=== PATIENT | female | born 1985 | race Caucasian/White ===

== ENCOUNTER 2023-04-13 11:46 | Emergency (ER) | payer BC, OTHER ==
--- OUTSIDE RECORDS SUMMARY | 2023-04-13 11:48 | XMS REPORT | Continuity of Care Document ---
Author Name Unknown Address [address] [place] [address] thconnect Address [address] [place] [address] Care Team Providers [facility] Director Name Role Phone [email or web address] Attending Clinician Unavaila ble [email or web address] Admitting Clinician Unavaila ble Encounters Start Date/Time End Date/Time Encounter Type Admission Type Attending Clinicians Care Facility Care Department Encounter ID Source 2023-03-07 00:00:00 2023-03-07 00:00:00 Outpatient [email or web address] [email or web address]_S [facility] [id number] [facility]
[2023-04-13 12:38] LABS: Absolute Lymphocytes (CBC) 1.5 K/uL (0.7-4.9); Hematocrit 33.2 % (36.0-45.0); Lymphocytes % 33.9 % (15.3-44.8); MCV 92.1 fL (80-100); MPV 7.7 fL (7.6-11.3); Platelets 198 thou/uL (152-406)
[2023-04-13 12:53] LABS: Albumin 3.7 g/dL (3.4-5.0); Bilirubin Total 0.2 mg/dL (0.2-1.0); Potassium 3.5 mEq/L (3.5-5.1); Protein, Total 6.9 g/dL (6.4-8.2)
--- NOTE | 2023-04-13 13:46 | ER ---
Nurse's Notes [facility] Name: Tonia Baker Age: 37 yrs Sex: Female : 1985 Arrival Date: 04/13/2023 Time: 11:46 Bed 14 Private MD: Diagnosis: Generalized anxiety disorder Presentation: 04/13 11:56 Chief complaint: EMS states: toned out to workplace for panic attack, hyperventilating eh3 and unable to speak on EMS arrival, pt states she was triggered at work and has hx of panic attacks. Has Xanax 0.25 mg PRN but was unable to take it in time because it was in her car. Ebola Screen: No symptoms or risks identified at this time. Risk Assessment: Do you want to hurt yourself or someone else? Patient reports no desire to harm self or others. Onset of symptoms was April 13, 2023. Care prior to arrival: Medication(s) given: Ativan 2mg IM. 11:56 Method Of Arrival: EMS: [place] [id number] 11:56 Acuity: RANDAL 3 eh3 11:56 Initial Sepsis Screen: Does the patient meet any 2 criteria? No. Patient's initial 3 sepsis screen is negative. Does the patient have a suspected source of infection? No. Patient's initial sepsis screen is negative. 12:30 Coronavirus screen: Vaccine status: Patient reports receiving the 2nd dose of the covid eh3 vaccine. Triage Assessment: 11:56 General: Appears in no apparent distress. Behavior is drowsy. Pain: Denies pain. Neuro: eh3 Level of Consciousness is obtunded. Cardiovascular: Capillary refill < 3 seconds Patient's skin is warm and dry. Rhythm is sinus tachycardia. Respiratory: Airway is patent Respiratory effort is even, unlabored, shallow, Respiratory pattern is regular, symmetrical, hypoventilation. GI: Abdomen is round non-distended. Derm: Skin is pink, warm \T\ dry. Musculoskeletal: Circulation, motion, and sensation intact. 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 - Social history:: Smoking status: unknown. Screenin:56 [facility] ED Fall Risk Assessment (Adult) Score/Fall Risk Level 0 - 2 = Low Risk. eh3 Nutritional screening: No deficits noted. Tuberculosis screening: No symptoms or risk factors identified. 12:30 Abuse screen: Denies threats or abuse. Denies injuries from another. eh3 Assessment: 11:56 Reassessment: No changes from previously documented assessment. See triage assessment. eh3 12:30 Reassessment: Patient appears in no apparent distress at this time. Patient and/or 3 family updated on plan of care and expected duration. Pain level reassessed. Patient is alert, oriented x 3, equal unlabored respirations, skin warm/dry/pink. at bedside. 13:30 Reassessment: Patient appears in no apparent distress at this time. Patient and/or 3 family updated on plan of care and expected duration. Pain level reassessed. Patient is alert, oriented x 3, equal unlabored respirations, skin warm/dry/pink. Vital Signs: 11:56 BP 129 / 81; Pulse 100; Resp 10; Pulse Ox 88% on R/A; eh3 12:30 BP 127 / 82; Pulse 101; Resp 17; Pulse Ox 100% on R/A; eh3 12:37 Pulse Ox 100% ; ec2 13:30 BP 117 / 82; Pulse 99; Resp 15; Pulse Ox 100% ; eh3 ED Course: 11:54 Patient arrived in ED. eh3 11:54 Gerardo Hyman MD is Attending Physician. ec2 11:56 Arm band placed on. eh3 11:56 Patient has correct armband on for positive identification. Bed in low position. Call eh3 light in reach. Side rails up X2. Client placed on continuous cardiac and pulse oximetry monitoring. NIBP monitoring applied. 11:56 Oxygen administration via nasal cannula \T\ 2L/min. eh3 11:58 Triage completed. eh3 12:25 Inserted saline lock: 20 gauge in left antecubital area, using aseptic technique. Blood eh3 collected. 12:30 Pauline Dill, RADHA is Primary Nurse. eh3 12:30 Provided Education on: use of call mack. eh3 12:30 CMP Sent. eh3 12:30 CBC with Diff Sent. eh3 12:30 Oxygen administration via nasal cannula \T\ 1L/min. eh3 13:15 Patient maintains SpO2 saturation greater than 95% on room air. eh3 13:55 No provider procedures requiring assistance completed. IV discontinued, intact, eh3 bleeding controlled, No redness/swelling at site. Pressure dressing applied. Administered Medications: No medications were administered Medication: 13:56 VIS not applicable for this client. eh3 Outcome: 13:45 Discharge ordered by . ec2 14:02 Patient left the ED. eh3 Signatures: Pauline Dill RN RN eh3 Gerardo Hyman MD MD ec2 Corrections: (The following items were deleted from the chart) 13:55 12:00 Inserted saline lock: 20 gauge in left antecubital area, using aseptic technique. eh3 Blood collected. 3 13:56 12:30 Reassessment: Patient appears in no apparent distress at this time. Patient eh3 and/or family updated on plan of care and expected duration. Pain level reassessed. Patient is alert, oriented x 3, equal unlabored respirations, skin warm/dry/pink. eh3
--- NOTE | 2023-04-13 13:46 | EDPHYS ---
Physician Documentation [facility] Name: Tonia Baker Age: 37 yrs Sex: Female : 1985 Arrival Date: 04/13/2023 Time: 11:46 Bed 14 Private MD: ED Physician Gerardo Hyman HPI: 04/13 11:55 This 37 yrs old Female presents to ER via Unassigned with complaints of ec2 Anxiety - Panic Attack. 11:55 Patient arrives today due to concern for possible panic attack. Patient with history of ec2 anxiety, states that she had tremors today that she does not want to talk about and states that she started hyperventilating and having palpitations. EMS reports that they had given her IM benzodiazepine and improvement in symptoms. Patient denies any pains, no vomiting, no diarrhea.. 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 - Social history:: Smoking status: unknown. ROS: 11:55 Constitutional: as per hpi ec2 Exam: 11:55 Constitutional: GEN: NAD Head: atraumatic Eyes: EOMI Ears: External ears are ec2 normal. CV: regular rate LUNGS: no respiratory distress ABD: non-distended SKIN: no evidence of rashes MSK: no evidence of trauma NEURO: moves all extremities equally. Psych: Patient is anxious with some slight hyperventilation. Vital Signs: 11:56 BP 129 / 81; Pulse 100; Resp 10; Pulse Ox 88% on R/A; eh3 12:30 BP 127 / 82; Pulse 101; Resp 17; Pulse Ox 100% on R/A; eh3 12:37 Pulse Ox 100% ; ec2 13:30 BP 117 / 82; Pulse 99; Resp 15; Pulse Ox 100% ; eh3 MDM: 11:54 Patient medically screened. ec2 11:56 ED course: Patient arrives today due to concern for anxiety. Examination remarkable for ec2 well-appearing nontoxic individual who has anxiety evident on examination along with some hyperventilation. Will obtain some lab work to evaluate for underlying process that could be causing her anxiety however I suspect this is a stress-induced reaction. Will also obtain EKG to evaluate for arrhythmia. . 12:36 ED course: EKG independently reviewed and interpreted by me, shows normal sinus rhythm, ec2 rate of 98, no acute ST segment elevations, nonconcerning intervals.. 12:49 Data reviewed: vital signs. ED course: CBC is reassuring. . ec2 12:55 ED course: Metabolic profile shows appropriate electrolytes. Pending urine .. ec2 13:44 ED course: On reassessment patient is awake and alert and answering questions ec2 appropriately, has returned to baseline per the patient and the . Specific trigger was a work associated trigger. Will discharge home, discussed possible testing, patient deferred at this time. Return precautions given.. 12 11:55 Order name: CBC with Diff; Complete Time: 12:49 ec2 04/13 11:55 Order name: CMP; Complete Time: 12:55 ec2 04/13 11:55 Order name: EKG; Complete Time: 11:55 ec2 12 11:55 Order name: EKG - Nurse/Tech; Complete Time: 12:35 ec2 Administered Medications: No medications were administered Disposition Summary: 04/13/23 13:45 Discharge Ordered Notes: Location: Home ec2 Condition: Stable ec2 Diagnosis - Generalized anxiety disorder ec2 Followup: ec2 - With: Private Physician - When: - Reason: Re-evaluation by your physician Discharge Instructions: - Discharge Summary Sheet ec2 - Panic Attack, [id number] ec2 Forms: - Medication Reconciliation Form ec2 - Thank You Letter ec2 - Antibiotic Education ec2 - Prescription Opioid Use ec2 - Patient Portal Instructions ec2 - Leadership Thank You Letter ec2 Signatures: Dispatcher [employer] Pauline Siddiqui RN RN 3 Gerardo Hyman MD MD ec2
[2023-04-13 14:28] VITALS: O2SAT 100
[2023-04-13 14:30] VITALS: BP 117/82
--- NOTE | 2023-04-18 14:03 | EKG ---
Test Date: 2023-04-13 Test Time: 12:33:18 Lodging Manager: LORNA MEASUREMENT RESULTS: Intervals: Rate: 98 MS: 132 QRSD: 86 QT: 358 QTc: 457 [place]: P: 52 MS: 132 QRS: 38 T: 31 INTERPRETIVE STATEMENTS: Normal sinus rhythm Normal ECG No previous ECG available for comparison Electronically Signed On 04-18-23 13:46:00 AUDIT MGR by Jarett York
== END 2023-04-13 14:02 | disposition home or self-care (01) ==
LOC: ER 11:46
DX: F41.1 Generalized anxiety disorder (principal); R06.4 Hyperventilation
CPT/HCPCS: 36415; 80053; 85025; 93005; 99284

== ENCOUNTER 2023-08-21 18:42 | Emergency (ER) | payer BC ==
[2023-08-21] MEDS ORDERED: LEVETIRACETAM 500 MG/5 ML VIAL IV ONE (19:21)
[2023-08-21] MEDS ORDERED: NA CHLORIDE 0.9% 1,000 ML ONE (19:21)
[2023-08-21] MEDS ORDERED: NA CHLORIDE 0.9% 100 ML ONE (19:21)
[2023-08-21] MEDS ORDERED: LORazepam 2 MG/ML VIAL ONE (20:00)
[2023-08-21 20:11] LABS: Absolute Lymphocytes (CBC) 1.8 K/uL (0.7-4.9); Absolute Monocytes 0.7 K/uL (0.1-1.3); Absolute Neutrophil 6.7 K/uL (1.8-8.0); Basophils % 0.4 % (0-1.3); Hematocrit 36.7 % (36.0-45.0); MCH 29.8 pg (27.0-35.0); MCHC 32.6 g/dL (32.0-36.0); MCV 91.4 fL (80-100); MPV 7.8 fL (7.6-11.3); Monocytes % 7.3 % (3.3-12.3); Neutrophils % 72.3 % (41.7-73.7); Platelets 256 thou/uL (152-406); RBC Red Blood Cell Count 4.02 M/uL (3.86-4.86); Red Cell Distribution Width 13.8 % (12.1-15.2)
[2023-08-21 20:16] LABS: PT Prothrombin Time 11.7 SECONDS (9.5-12.5); Protime INR 1.07
[2023-08-21 20:29] LABS: ALT/SGPT 23 U/L (13-56); AST/SGOT 11 U/L (15-37); Albumin 3.6 g/dL (3.4-5.0); Alkaline Phosphatase 72 U/L (45-117); Anion Gap 8.8 mEq/L (5.0-15.0); BUN Blood Urea Nitrogen 7 mg/dL (7-18); Bicarbonate 28 mEq/L (21-32); Bilirubin Total 0.1 mg/dL (0.2-1.0); Globulin 3.6 g/dL (2.3-3.5); Glomerular Filtration Rate 98 ml/min (=/>90); Glucose Level 102 mg/dL (74-106); Magnesium 2.2 mg/dL (1.6-2.4); Potassium 3.8 mEq/L (3.5-5.1); Protein, Total 7.2 g/dL (6.4-8.2); Sodium Level 137 mEq/L (136-145)
[2023-08-21 21:00] LABS: Bilirubin Direct < 0.1 mg/dL (0-0.2); Bilirubin Indirect, Calculated ND mg/dL (0.2-0.8); Troponin High Sensitivity < 3.0 pg/mL (<58.9)
--- NOTE | 2023-08-21 21:21 | RAD REPORT ---
EXAM DESCRIPTION: CT - Head Brain Wo Cont - 08/21/2023 8:52 pm CLINICAL HISTORY: SEIZURE COMPARISON: No comparisons TECHNIQUE: Noncontrast head CT images were obtained without IV contrast. Multiplanar reformats were generated and reviewed. All CT scans are performed using dose optimization technique as appropriate and may include automated exposure control or mA/KV adjustment according to patient size. FINDINGS: No intracranial hemorrhage, mass, or edema. Midline structures are unremarkable. Normal ventricular caliber for age. Cullen-white matter differentiation is preserved, without evidence of acute infarct. No abnormal extra- axial fluid collections. Mastoid air cells and visualized portions of the paranasal sinuses are clear. No acute bony findings. IMPRESSION: No evidence of an acute intracranial process.
[2023-08-21 21:49] LABS: Specific Gravity 1.005 (1.005-1.030); Sqamous Epithelial <5 /HPF (None Seen); Urine Bacteria <20 /HPF (<20); Urine Bilirubin NEGATIVE (Negative); Urine Blood Negative (Negative); Urine Clarity Turbid (Clear); Urine Color Colorless (Yellow); Urine Culture Reflex Order NOT NEEDED; Urine Glucose NEGATIVE (Negative); Urine Ketones NEGATIVE (Negative); Urine Microscopic Reflex YN ORDER UMIC; Urine Nitrite NEGATIVE (Negative); Urine Protein NEGATIVE (Negative); Urine RBC <5 /HPF (None Seen); Urine Urobilinogen Normal (Normal); Urine WBC <5 /HPF (<5)
[2023-08-21 21:50] LABS: Specific Gravity 1.005 (1.005-1.030)
[2023-08-21 21:56] LABS: Barbiturates NEGATIVE (NEGATIVE); Benzodiazepines NEGATIVE (NEGATIVE); Cocaine NEGATIVE (NEGATIVE); METHAMPHETAM NEGATIVE (NEGATIVE); Methadone NEGATIVE (NEGATIVE); Opiates NEGATIVE (NEGATIVE); Phencyclidine NEGATIVE (NEGATIVE); THC Cannibis POSITIVE (NEGATIVE)
--- NOTE | 2023-08-21 23:00 | ER ---
Nurse's Notes [facility] Name: Tonia Baker Age: 37 yrs Sex: Female : 1985 Arrival Date: 08/21/2023 Time: 18:42 Bed 14 Private MD: Diagnosis: Unspecified convulsions;New onset convulsive activity Presentation: 08/20 18:55 Chief complaint: Spouse and/or significant other states: Has been having "seizures" nj1 ever since last week when she was seen at a hospital in [place] for abdominal pain. Never diagnosed with seizures in the past. Pt states she had 3 "grand mal seizures back to back" today, denies incontinence of bowel/urine. 18:55 Coronavirus screen: Vaccine status: Patient reports being unvaccinated. Ebola Screen: nj1 Patient denies travel to an Ebola-affected area in the 21 days before illness onset. Initial Sepsis Screen: Does the patient meet any 2 criteria? HR > 90 bpm. No. Patient's initial sepsis screen is negative. Does the patient have a suspected source of infection? No. Patient's initial sepsis screen is negative. Risk Assessment: Do you want to hurt yourself or someone else? Patient reports no desire to harm self or others. Onset of symptoms was August 2023. 18:55 Method Of Arrival: [facility] 18:55 Acuity: RANDAL 3 nj1 Triage Assessment: 18:55 General: Patient laying in lobby chair as if she was sleeping. Assisted to wheelchair nj1 by .. 19:00 General: Appears in no apparent distress. uncomfortable. Neuro: Level of Consciousness nj1 is awake, obeys commands. RN PRIMARY CARE: 23:33 LMP N/A - control method, Not tl4 Historical: - Allergies: 19:08 No Known Allergies; nj1 - PMHx: 19:08 Anxiety; Fibromyalgia; Chronic fatigue syndrome; nj1 - Immunization history:: Client reports having NOT received the Covid vaccine. - Infectious Disease History:: Denies. - Social history:: Smoking status: Patient denies any tobacco usage or history of. Screenin:49 [facility] ED Fall Risk Assessment (Adult) History of falling in the last 3 months, tl4 including since admission No falls in past 3 months (0 pts) Confusion or Disorientation No (0 pts) Intoxicated or Sedated No (0 pts) Impaired Gait No (0 pts) Mobility Assist Device Used No (0 pt) Altered Elimination No (0 pt) Score/Fall Risk Level 0 - 2 = Low Risk Oriented to surroundings, Maintained a safe environment, Educated pt \\T\\ family on fall prevention, incl call for assistance when getting out of bed, Assessed \\T\\ reinforced patient's understanding of fall precautions, Hourly rounding (assess needs \\T\\ fall precautionary measures) done, Used ambulatory aids as needed (educated on \\T\\ assisted with), Used gait belt as appropriate. Abuse screen: Denies threats or abuse. Denies injuries from another. Nutritional screening: No deficits noted. 23:33 Tuberculosis screening: No symptoms or risk factors identified. tl4 Assessment: 19:30 General: Appears distressed, Behavior is calm, cooperative. Pain: Denies pain. Neuro: tl4 Level of Consciousness is awake, obeys commands, responds intermittently to voice. Oriented to pt states "I can't" when asked to answer orientation questions. Seizure activity noted at this time. Pt closes eyes and they start to flutter. Also noted that patient's extremities will intermittently shake. Pt responds to painful stimuli during episodes. After shaking stops, pt immediately able to respond verbally. Verbal response is quiet, but appropriate. Episodes last from 10 to 30 seconds. Provider Brown aware. Cardiovascular: Capillary refill < 3 seconds Patient's skin is warm and dry. Respiratory: Airway is patent Respiratory effort is even, unlabored, Respiratory pattern is regular, symmetrical, Breath sounds are clear bilaterally. GI: No signs and/or symptoms were reported involving the gastrointestinal system. : No signs and/or symptoms were reported regarding the genitourinary system. EENT: No signs and/or symptoms were reported regarding the EENT system. Derm: No signs and/or symptoms reported regarding the dermatologic system. Musculoskeletal: No signs and/or symptoms reported regarding the musculoskeletal system. 20:37 Reassessment: Patient and/or family updated on plan of care and expected duration. Pain tl4 level reassessed. Patient is alert, oriented x 3, equal unlabored respirations, skin warm/dry/pink. No further episodes of eye fluttering or extremity shaking noted. Pt verbalizes very slowly and quietly. Pt is able to use her cell phone without difficulty. 20:57 Reassessment: Patient is alert, oriented x 3, equal unlabored respirations, skin cm10 warm/dry/pink. Pt noted to be awake at this time. Vital Signs: 18:55 BP 130 / 91; Pulse 108; Resp 16; Temp 97.9(TE); Pulse Ox 98% on R/A; Weight 61.69 kg; nj1 Height 5 ft. 4 in. ; 20:00 BP 122 / 93; Pulse 102; Resp 24; Pulse Ox 98% on R/A; tl4 20:30 BP 123 / 83; Pulse 99; Resp 18; Pulse Ox 100% on R/A; tl4 21:00 BP 112 / 78; Pulse 102; Resp 24; Pulse Ox 100% ; Pain 0/10; tl4 21:30 BP 124 / 83; Pulse 104; Resp 16; Pulse Ox 99% on R/A; tl4 23:15 BP 119 / 75; Pulse 89; Resp 16; Temp 98.6(O); Pulse Ox 99% ; Pain 0/10; tl4 18:55 Body Mass Index 23.34 (61.69 kg, 162.56 cm) nj1 21:00 Pain Scale: Adult tl4 23:15 Pain Scale: Adult tl4 Constanza Coma Score: 19:00 Eye Response: spontaneous(4). Motor Response: obeys commands(6). Verbal Response: nj1 oriented(5). Total: 15. ED Course: 18:44 Patient arrived in ED. im 18:44 Nicolasa Edmond [facility] sb4 18:44 Gerardo Hyman MD is Attending Physician. sb4 19:08 Triage completed. nj1 19:09 Arm band placed on. nj1 19:35 Seizure precautions initiated. tl4 20:07 Attending Physician role handed off by Gerardo Hyman MD sb4 20:07 Juan Estes MD is Attending Physician. sb4 20:12 Basic Metabolic Panel Sent. tl4 20:12 CBC with Diff Sent. tl4 20:12 Hepatic Function Sent. tl4 20:12 Magnesium Sent. tl4 20:12 Protime (+inr) Sent. tl4 20:12 Ptt, Activated Sent. tl4 20:12 Troponin High Sensitivity Sent. tl4 20:54 CT Head Brain wo Cont In Process Unspecified. EDMS 20:[address]. cm10 21:26 Patient has correct armband on for positive identification. Placed in gown. Bed in low tl4 position. Call light in reach. Side rails up X 1. Adult w/ patient. Provided Education on: ED process. Client placed on continuous cardiac and pulse oximetry monitoring. NIBP monitoring applied. dielectric tester on. Door closed. Noise minimized. Lights dimmed. Moved to private room. Warm blanket given. 21:26 Initial lab(s) drawn, by me, sent to lab. EKG done, by ED staff, reviewed by Juan Estes MD. 21:52 Warm blanket given. tl4 22:58 Xu Villagomez MD is Referral Physician. sp4 23:10 No provider procedures requiring assistance completed. IV discontinued, intact, tl4 bleeding controlled, No redness/swelling at site. Pressure dressing applied. Administered Medications: 20:11 Drug: NS 0.9% IV 1000 ml IV at 1 bolus Per protocol; 1000 mL bolus Route: IV; Rate: 1 tl4 bolus; Site: left antecubital; Delivery: Primary tubing; 23:19 Follow up: Response: No adverse reaction; IV Status: Completed infusion; IV Intake: tl4 1000ml 20:11 Drug: Keppra IV 1000 mg IV at calculated rate once Route: IV; Rate: calculated rate; tl4 Site: left antecubital; 23:19 Follow up: Response: No adverse reaction; IV Status: Completed infusion; IV Intake: tl4 100ml 20:12 Drug: Ativan IVP 1 mg IVP once Route: IVP; Site: left antecubital; tl4 21:24 Follow up: Response: No adverse reaction; Marked relief of symptoms tl4 23:20 Not Given (no further seizure like activityy): ativan1 mg IVP once tl4 23:20 Drug: Keppra PO 750 mg PO once Route: PO; tl4 23:31 Follow up: Response: No adverse reaction; Medication administered at discharge. tl4 Medication: 22:01 VIS not applicable for this client. tl4 Intake: 23:19 IV: 100ml; Total: 100ml. tl4 23:19 IV: 1000ml; Total: 1100ml. tl4 Outcome: 22:59 Discharge ordered by . sp4 23:12 Discharged to home ambulatory, with family, tl4 23:12 Condition: stable 23:12 Discharge instructions given to patient, family, Instructed on discharge instructions, follow up and referral plans. medication usage, Demonstrated understanding of instructions, follow-up care, medications, Prescriptions given X 2, 23:33 Patient left the ED. tl4 Signatures: Dispatcher [employer] EDNicolasa Ramirez, AMIE PAShailesh sb4 Juan Estes MD MD sp4 Chyna Linares RN RN nj1 Amy Page Clarissa, RN RN cm10 Nick Garber RN RN tl4
--- NOTE | 2023-08-21 23:00 | EDPHYS ---
Physician Documentation [facility] Name: Tonia Baker Age: 37 yrs Sex: Female : 1985 Arrival Date: 08/21/2023 Time: 18:42 Bed 14 Private MD: ED Physician Juan Estes HPI: 08/20 19:13 This 37 yrs old Female presents to ER via Ambulatory with complaints of Probable sb4 Seizure. 19:13 states that patient has had several seizures over the past week. He states that sb4 first they were just localized to her eye rolling back in her head and blinking rapidly, then involved her left arm shaking, and have developed into full grand mal seizures. 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 - Infectious Disease History:: Denies. - Social history:: Smoking status: Patient denies any tobacco usage or history of. ROS: 19:28 Constitutional: Negative for fever, chills, and weight loss, sb4 19:28 Neuro: Positive for headache, seizure activity, 19:28 All other systems are negative, Exam: 19:28 Head/Face: Normocephalic, atraumatic. Eyes: Extra-ocular motions intact. Periorbital sb4 areas with no swelling, redness, or edema. ENT: Mucous membranes moist. Respiratory: Lungs have equal breath sounds bilaterally, clear to auscultation and percussion. No rales, rhonchi or wheezes noted. No increased work of breathing, no retractions or nasal flaring. Abdomen/GI: Soft, non-tender, no distension. Skin: Warm, dry with normal turgor. Normal color with no rashes, no lesions, and no evidence of cellulitis. MS/ Extremity: Pulses equal, no cyanosis. Neurovascular intact. Full, normal range of motion. 19:28 Constitutional: The patient appears alert, awake, sleepy 19:28 Cardiovascular: Rate: tachycardic, Rhythm: regular, 19:28 Neuro: seizure activity, focal in nature is displayed by patient, left arm shaking, eyes blinking, unresponsive to verbal or painful stimuli- resolved spontaneously, 22:46 ECG was reviewed by the Attending Physician. EKG 2030 sinus tachycardia at the rate sp4 of 103 Vital Signs: 18:55 BP 130 / 91; Pulse 108; Resp 16; Temp 97.9(TE); Pulse Ox 98% on R/A; Weight 61.69 kg; nj1 Height 5 ft. 4 in. ; 20:00 BP 122 / 93; Pulse 102; Resp 24; Pulse Ox 98% on R/A; tl4 20:30 BP 123 / 83; Pulse 99; Resp 18; Pulse Ox 100% on R/A; tl4 21:00 BP 112 / 78; Pulse 102; Resp 24; Pulse Ox 100% ; Pain 0/10; tl4 21:30 BP 124 / 83; Pulse 104; Resp 16; Pulse Ox 99% on R/A; tl4 23:15 BP 119 / 75; Pulse 89; Resp 16; Temp 98.6(O); Pulse Ox 99% ; Pain 0/10; tl4 18:55 Body Mass Index 23.34 (61.69 kg, 162.56 cm) nj1 21:00 Pain Scale: Adult tl4 23:15 Pain Scale: Adult tl4 [place] Coma Score: 19:00 Eye Response: spontaneous(4). Motor Response: obeys commands(6). Verbal Response: nj1 oriented(5). Total: 15. MDM: 18:56 Patient medically screened. sb4 20:07 Transition of care: After a detail discussion of the patient's case, care is sb4 transferred to Juan Estes MD. 08/21 00:12 Differential diagnosis: drug overdose, cardiac arrhythmia, seizure, TIA. Data reviewed: sp4 vital signs, nurses notes, old medical records, lab test result(s), radiologic studies, CT scan. Consideration of Admission/Observation Escalation of care including admission/observation considered. ED course: Workup is unremarkable today. Patient is feeling better. Patient evaluated will have seizure disorder new onset. Will provide prescription for Keppra and refer to Dr. Villagomez for office evaluation. . 08/20 19:10 Order name: Basic Metabolic Panel; Complete Time: 21:07 sb4 08/20 19:10 Order name: CBC with Diff; Complete Time: 20:14 sb4 08/20 19:10 Order name: Hepatic Function; Complete Time: 21:07 sb4 08/20 19:10 Order name: Magnesium; Complete Time: 21:07 sb4 08/20 19:10 Order name: Test, Urine; Complete Time: 22:16 sb4 08/20 19:10 Order name: Protime (+inr); Complete Time: 21:07 sb4 08/20 19:10 Order name: Ptt, Activated; Complete Time: 21:07 sb4 08/20 19:10 Order name: Troponin High Sensitivity; Complete Time: 21:07 sb4 08/20 19:10 Order name: UDS; Complete Time: 22:16 sb4 08/20 19:10 Order name: Urinalysis w/ reflexes; Complete Time: 22:16 sb4 08/20 19:10 Order name: CT Head Brain wo Cont; Complete Time: 22:16 sb4 08/20 19:10 Order name: Cardiac monitoring; Complete Time: 20:11 sb4 08/20 19:10 Order name: EKG - Nurse/Tech; Complete Time: 20:36 4 08/20 19:10 Order name: IV Saline Lock; Complete Time: 20:11 sb4 08/20 19:10 Order name: Labs collected and sent; Complete Time: 20:11 sb4 08/20 19:10 Order name: NPO; Complete Time: 20:11 sb4 08/20 19:10 Order name: O2 Per Protocol; Complete Time: 20:12 sb4 08/20 19:10 Order name: O2 Sat Monitoring; Complete Time: 20:12 sb4 EC/15 22:46 Rate is 103 beats/min. Rhythm is regular, Sinus tachycardia. QRS Point [place] is Normal. DE sp4 interval is normal. QRS interval is normal. QT interval is normal. No Q waves. T waves are Normal. No ST changes noted. Clinical impression: Normal ECG. Interpreted by me. Reviewed by me. Administered Medications: 20:11 Drug: NS 0.9% IV 1000 ml IV at 1 bolus Per protocol; 1000 mL bolus Route: IV; Rate: 1 tl4 bolus; Site: left antecubital; Delivery: Primary tubing; 23:19 Follow up: Response: No adverse reaction; IV Status: Completed infusion; IV Intake: tl4 1000ml 20:11 Drug: Keppra IV 1000 mg IV at calculated rate once Route: IV; Rate: calculated rate; tl4 Site: left antecubital; 23:19 Follow up: Response: No adverse reaction; IV Status: Completed infusion; IV Intake: tl4 100ml 20:12 Drug: Ativan IVP 1 mg IVP once Route: IVP; Site: left antecubital; tl4 21:24 Follow up: Response: No adverse reaction; Marked relief of symptoms tl4 23:20 Not Given (no further seizure like activityy): ativan1 mg IVP once tl4 23:20 Drug: Keppra PO 750 mg PO once Route: PO; tl4 23:31 Follow up: Response: No adverse reaction; Medication administered at discharge. tl4 Disposition: 22:57 Co-signature as Attending Physician, Jaun Estes MD I agree with the assessment sp4 and plan of care. I reviewed the patient's care provided by Advanced Practice Provider \T\ agree w/ the diagnosis \T\ care plan. I personally saw the pt \T\ performed a substantive portion of the visit, incldng all aspects of the (History/Exam/Medical Decision Making). Disposition Summary: 08/21/23 22:59 Discharge Ordered Problem: new sp4 Symptoms: have improved sp4 Condition: Stable sp4 Diagnosis - Unspecified convulsions sp4 - New onset convulsive activity sp4 Followup: sp4 - With: Xu Villagomez MD - When: 7 - 10 days - Reason: Recheck today's complaints Discharge Instructions: - Discharge Summary Sheet sp4 - Seizure, Adult, [id number] sp4 Forms: - Patient Portal Instructions sp4 Prescriptions: - Ativan 2 mg Oral tablet - take 1 tablet ORAL route every 8 hours As needed PRN seizure or convulsive sp4 activity; 20 tablet; Refills: 0, Product Selection Permitted - Keppra 750 mg Oral tablet - take 1 tablet ORAL route every 12 hours; 60 tablet; Refills: 0, Product sp4 Selection Permitted Signatures: Dispatcher [employer] Nicolasa Huddleston PA-C PA-C sb4 Juan Estes MD MD sp4 Chyna Linares RN RN nj1 Nick Garber RN RN tl4 Corrections: (The following items were deleted from the chart) 19:11 19:10 BASIC METABOLIC PANEL+C.LAB.BRZ ordered. EDMS EDMS 19:11 19:10 CBC+H.LAB.BRZ ordered. EDMS EDMS 19:11 19:10 HEPATIC FUNCTION+C.LAB.BRZ ordered. EDMS EDMS 19: 19:10 MAGNESIUM+C.LAB.BRZ ordered. EDMS EDMS 19:11 19:10 Test, Urine+UC.LAB.BRZ ordered. EDMS EDMS 19:11 19:10 PROTIME (+INR)+COAG.LAB.BRZ ordered. EDMS EDMS 19: 19:10 PTT, ACTIVATED+COAG.LAB.BRZ ordered. EDMS EDMS 19: 19:10 Troponin High Sensitivity+C.LAB.BRZ ordered. EDMS EDMS 19:11 19:10 URINE DRUG SCREEN+UC.LAB.BRZ ordered. EDMS EDMS 19: 19:10 Urinalysis+U.LAB.BRZ ordered. EDMS EDMS 19:11 19:11 Head Brain Wo Cont+CT.RAD.BRZ ordered. EDMS EDMS
[2023-08-21] MEDS ORDERED: levETIRAcetam 500 MG TAB ONE (23:14)
[2023-08-22 06:03] VITALS: BP 124/83; TEMP 97.9; O2SAT 99
== END 2023-08-21 23:33 | disposition home or self-care (01) ==
LOC: ER 18:42
DX: G40.009 Localization-related (focal) (partial) idiopathic epilepsy and epileptic syndromes with seizures of localized onset, not intractable, without status epilepticus (principal)
CPT/HCPCS: 96365; 93005; 85025; 81001; 80048; 36415; 83735; 81025; 85610; 80076; 85730; 84484; 80307; 70450; 96375; 99285; 96366; J1953; J7030

== ENCOUNTER 2023-08-22 18:44 | Emergency (ER) | payer BC ==
[2023-08-22] MEDS ORDERED: LORazepam 2 MG/ML VIAL ONE (19:10)
[2023-08-22] MEDS ORDERED: NA CHLORIDE 0.9% 1,000 ML ONE (19:18)
[2023-08-22] MEDS ORDERED: LEVETIRACETAM 500 MG/5 ML VIAL IV ONE (19:18)
[2023-08-22 19:25] LABS: Absolute Lymphocytes (CBC) 2.7 K/uL (0.7-4.9); Absolute Monocytes 0.6 K/uL (0.1-1.3); Absolute Neutrophil 3.6 K/uL (1.8-8.0); Basophils % 0.6 % (0-1.3); Eosinophils % 0.1 % (0-4.4); Hemoglobin 11.9 g/dL (12.0-15.0); Lymphocytes % 38.8 % (15.3-44.8); MCH 30.2 pg (27.0-35.0); MCHC 33.1 g/dL (32.0-36.0); MCV 91.3 fL (80-100); MPV 7.6 fL (7.6-11.3); Monocytes % 9.1 % (3.3-12.3); Neutrophils % 51.4 % (41.7-73.7); Nucleated Red Blood Cells % 0.1 % (0-0); Platelets 273 thou/uL (152-406); RBC Red Blood Cell Count 3.94 M/uL (3.86-4.86); Red Cell Distribution Width 13.7 % (12.1-15.2)
[2023-08-22 19:45] LABS: Albumin 3.7 g/dL (3.4-5.0); Albumin/Globulin Ratio 1.1 (1.1-1.8); Bilirubin Total 0.1 mg/dL (0.2-1.0); Globulin 3.5 g/dL (2.3-3.5); Protein, Total 7.2 g/dL (6.4-8.2)
--- NOTE | 2023-08-22 20:51 | ER ---
Nurse's Notes [facility] Name: Tonia Baker Age: 37 yrs Sex: Female : 1985 Arrival Date: 08/22/2023 Time: 18:44 Bed 15 Private MD: Diagnosis: Other seizures Presentation: 08/21 18:57 Chief complaint: Spouse and/or significant other states: "we were up here yesterday as6 because she was having seizures and she has been having them all day today" pt was shaking at time of triage but able to assist this nurse with getting her in a wheelchair. Coronavirus screen: At this time, the client does not indicate any symptoms associated with coronavirus-19. Ebola Screen: No symptoms or risks identified at this time. Initial Sepsis Screen: Does the patient meet any 2 criteria? No. Patient's initial sepsis screen is negative. Does the patient have a suspected source of infection? No. Patient's initial sepsis screen is negative. Risk Assessment: Do you want to hurt yourself or someone else? Patient reports no desire to harm self or others. Onset of symptoms was August 21, 2023. 18:57 Acuity: RANDAL 3 as6 18:57 Method Of Arrival: Wheelchair as6 Triage Assessment: 19:20 Neuro: Level of Consciousness is obeys commands, Seizure activity noted at this time. rv Type of seizure: grand mal seizure. Patient is post-ictal at this time. Cardiovascular: Rhythm is sinus tachycardia. Respiratory: Airway is patent Respiratory effort is even, unlabored, Respiratory pattern is regular, Breath sounds are clear bilaterally. 19:32 General: Appears Behavior is drowsy. Pain: Denies pain. 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 - Infectious Disease History:: Denies. - Social history:: Smoking status: Patient denies any tobacco usage or history of. Screenin:23 [facility] ED Fall Risk Assessment (Adult) History of falling in the last 3 months, rv including since admission Yes- fall prone (multiple falls) (3 pts) Confusion or Disorientation Yes (5 pts) Score/Fall Risk Level 3 or more points = High Risk Oriented to surroundings, Maintained a safe environment, Educated pt \\T\\ family on fall prevention, incl call for assistance when getting out of bed, Assessed \\T\\ reinforced patient's understanding of fall precautions. Abuse screen: Denies threats or abuse. Denies injuries from another. Nutritional screening: No deficits noted. Tuberculosis screening: No symptoms or risk factors identified. Assessment: 19:34 Neuro: Level of Consciousness is obeys commands. rv 21:35 General: Appears comfortable, Behavior is calm, cooperative. Pain: Denies pain. Neuro: rv Level of Consciousness is awake, alert, obeys commands, Oriented to person, place, time, situation. Cardiovascular: Capillary refill < 3 seconds Rhythm is sinus rhythm. Respiratory: Airway is patent Respiratory effort is even, unlabored. Vital Signs: 18:57 BP 109 / 76; Pulse 118; Resp 18 S; Temp 97.1(TE); Pulse Ox 99% on R/A; Weight 61.23 kg as6 (R); Height 5 ft. 4 in. (R); 19:23 BP 106 / 77; Pulse 116; Resp 16; Pulse Ox 99% on 2 lpm NC; rv 20:41 BP 104 / 67; Pulse 86; Resp 17; Pulse Ox 100% on 2 lpm NC; rv 21:35 BP 97 / 60; Pulse 83; Resp 18; Pulse Ox 98% 2 lpm ; rv 23:04 Pulse 84; Resp 18; Temp 98; Pulse Ox 100% ; rv 18:57 Body Mass Index 23.17 (61.23 kg, 162.56 cm) as6 Ovando Coma Score: 19:32 Eye Response: to voice(3). Motor Response: obeys commands(6). Verbal Response: rv confused(4). Total: 13. ED Course: 18:45 Patient arrived in ED. im 18:57 Arm band placed on. as6 19:00 Susana Rinaldi FNP-C [facility]. kb 19:00 Gerardo Hyman MD is Attending Physician. kb 19:00 Triage completed. as6 19:12 Reese Streeter, RADHA is Primary Nurse. rv 19:23 Patient has correct armband on for positive identification. Client placed on continuous rv cardiac and pulse oximetry monitoring. NIBP monitoring applied. property assessment monitor on. 19:23 Placed in gown. Bed in low position. Call light in reach. Side rails up X2. Seizure rv precautions initiated. 19:23 Initial lab(s) drawn, by me, sent to lab. Inserted saline lock: 20 gauge in left rv antecubital area, using aseptic technique. Blood collected. 19:25 Seizure precautions initiated. oe 20:26 Initiated transfer to [facility], spoke with Nanette. wm 20:41 No provider procedures requiring assistance completed. rv 22:04 Pt accepted for transfer to [facility] Rm:[address] Perkins, Than \\T\\ 2147 per Nanette Conte. wm 22:04 EMS will transport with an ETA \\T\\ 2315. wm 23:03 Patient transferred, IV remains in place. rv Administered Medications: 19:15 Drug: Ativan IVP 2 mg IVP once Route: IVP; Site: left antecubital; rv 21:33 Follow up: Response: No adverse reaction; Marked relief of symptoms; RASS: Drowsy (-1) rv 19:23 Drug: Keppra IV 1000 mg IV at calculated rate once Route: IV; Rate: calculated rate; rv Site: left antecubital; 21:32 Follow up: Response: No adverse reaction; IV Status: Completed infusion rv 19:23 Drug: NS 0.9% IV 1000 ml IV at 1000 ml once Route: IV; Rate: 1000 ml; Site: left rv antecubital; 21:32 Follow up: IV Status: Completed infusion; IV Intake: 1000ml rv Medication: 19:23 VIS not applicable for this client. rv Intake: 21:32 IV: 1000ml; Total: 1000ml. rv Outcome: 20:51 ER care complete, transfer ordered by MD. stephen 23:03 Transferred by ground EMS to [facility], Transfer form completed. rv X-rays sent w/ patient. Note: report given to [facility] 23:03 Condition: good 23:03 Instructed on the need for transfer, 23:36 Patient left the ED. rv Signatures: Susana Rinaldi, GAS LINE SERVICER-C GAS LINE SERVICER-Ckb Micah Garcia oe Reese Streeter, RN RN rv Amanda Treviño Ashby, RN RN as6 Amy Page im
--- NOTE | 2023-08-22 20:51 | EDPHYS ---
Physician Documentation [facility] Name: Tonia Baker Age: 37 yrs Sex: Female : 1985 Arrival Date: 08/22/2023 Time: 18:44 Bed 15 Private MD: ED Physician Gerardo Hyman HPI: 08/21 20:51 This 37 yrs old Female presents to ER via Wheelchair with complaints of Seizure. kb 20:51 Pt is a 37 year old female who presents for recurrent seizures. states pt kb started having seizures last week where her eyes would roll back, then they progressed to full body convulsions. Pt was seen here yesterday and put on Keppra. Came back today because pt has had about 7 seizures throughout the day. . 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 - Infectious Disease History:: Denies. - Social history:: Smoking status: Patient denies any tobacco usage or history of. ROS: 19:13 Constitutional: As per HPI kb Exam: 19:13 Constitutional: This is a well developed, well nourished patient who is awake, alert, kb and in no acute distress. Head/Face: Normocephalic, atraumatic. Eyes: Pupils equal round and reactive to light, extra-ocular motions intact. Lids and lashes normal. Conjunctiva and sclera are non-icteric and not injected. Cornea within normal limits. Periorbital areas with no swelling, redness, or edema. ENT: Moist Mucous membranes Respiratory: Respirations even and unlabored. No increased work of breathing. Talking in full sentences Abdomen/GI: Soft, non-tender. No distention Skin: Warm, dry with normal turgor. Normal color. MS/ Extremity: Pulses equal, no cyanosis. Neurovascular intact. Full, normal range of motion. Neuro: Awake and alert, GCS 15, oriented to person, place, time, and situation. Moves all extremities. Able to transfer from wheelchair to stretcher with assist 19:13 Cardiovascular: Rate: tachycardic, Vital Signs: 18:57 BP 109 / 76; Pulse 118; Resp 18 S; Temp 97.1(TE); Pulse Ox 99% on R/A; Weight 61.23 kg as6 (R); Height 5 ft. 4 in. (R); 19:23 BP 106 / 77; Pulse 116; Resp 16; Pulse Ox 99% on 2 lpm NC; rv 20:41 BP 104 / 67; Pulse 86; Resp 17; Pulse Ox 100% on 2 lpm NC; rv 21:35 BP 97 / 60; Pulse 83; Resp 18; Pulse Ox 98% 2 lpm ; rv 23:04 Pulse 84; Resp 18; Temp 98; Pulse Ox 100% ; rv 18:57 Body Mass Index 23.17 (61.23 kg, 162.56 cm) as6 Constanza Coma Score: 19:32 Eye Response: to voice(3). Motor Response: obeys commands(6). Verbal Response: rv confused(4). Total: 13. MDM: 19:02 Patient medically screened. kb 19:13 Data reviewed: vital signs, nurses notes. kb 19:13 Differential diagnosis: cardiac arrhythmia, seizure, electrolyte abnormality. Management of patient was discussed with the following: Electronic Engineering Technician: Dr Villagomez recommends transfer for EEG monitoring. 20:08 Consideration of Admission/Observation Escalation of care including admission/observation considered. pt will be transferred for EEG monitoring. Historians other than the Patient: Spouse/Significant Other: . Counseling: I had a detailed discussion with the patient and/or guardian regarding the historical points, exam findings, and any diagnostic results supporting the discharge/admit diagnosis, lab results, the need to transfer to another facility, for higher level of care. 21:33 Management of patient was discussed with the following: Dr Baez, neurologist at [facility], accepts pt for consult. Would like pt admitted to hospitalist. Awaiting call back . 22:16 Management of patient was discussed with the following: Dr Khan, hospitalist at [facility], accepts pt for transfer. 08/21 19:09 Order name: CBC with Diff; Complete Time: 19:38 kb 08/21 19:09 Order name: CMP; Complete Time: 19:50 kb 08/21 19:07 Order name: IV Start; Complete Time: 19:36 kb Administered Medications: 19:15 Drug: Ativan IVP 2 mg IVP once Route: IVP; Site: left antecubital; rv 21:33 Follow up: Response: No adverse reaction; Marked relief of symptoms; RASS: Drowsy (-1) rv 19:23 Drug: Keppra IV 1000 mg IV at calculated rate once Route: IV; Rate: calculated rate; rv Site: left antecubital; 21:32 Follow up: Response: No adverse reaction; IV Status: Completed infusion rv 19:23 Drug: NS 0.9% IV 1000 ml IV at 1000 ml once Route: IV; Rate: 1000 ml; Site: left rv antecubital; 21:32 Follow up: IV Status: Completed infusion; IV Intake: 1000ml rv Disposition Summary: 08/22/23 20:51 Transfer Ordered Notes: Transfer Location: [facility] kb Reason: Higher level of care kb Condition: Stable kb Problem: new kb Symptoms: are unchanged kb Accepting Physician: Dr Khan(08/22/23 23:36) rv Diagnosis - Other seizures kb Forms: - Medication Reconciliation Form kb - SBAR form kb Addendum: 08/25/2023 01:03 I was immediately available for consultation during this patient's visit. I did not e c2 personally see the patient or discuss the patient with the ROBERT. . Signatures: Dispatcher [employer] Susana Pfeiffer, LABORER CHEESEMAKING-C LABORER CHEESEMAKING-CkReese Wolff RN RN rv Slawson, Ashby, RN RN as6 Gerardo Hyman MD MD ec2 Corrections: (The following items were deleted from the chart) 08/21 20:52 19:13 Constitutional: This is a well developed, well nourished patient who is awake, kb alert, and in no acute distress. Head/Face: Normocephalic, atraumatic. Eyes: Pupils equal round and reactive to light, extra-ocular motions intact. Lids and lashes normal. Conjunctiva and sclera are non-icteric and not injected. Cornea within normal limits. Periorbital areas with no swelling, redness, or edema. ENT: Moist Mucous membranes Respiratory: Respirations even and unlabored. No increased work of breathing. Talking in full sentences Abdomen/GI: Soft, non-tender. No distention Skin: Warm, dry with normal turgor. Normal color. MS/ Extremity: Pulses equal, no cyanosis. Neurovascular intact. Full, normal range of motion. Neuro: Awake and alert, GCS 15, oriented to person, place, time, and situation. Moves all extremities. Normal gait. kb 22:16 20:51 Dr kb kb 23:36 22:16 Dr Than kb rv
[2023-08-23 09:06] VITALS: BP 97/60; TEMP 98; O2SAT 100
== END 2023-08-22 23:36 | disposition short-term general hospital (02) ==
LOC: ER 18:44
DX: G40.89 Other seizures (principal)
CPT/HCPCS: 96365; 85025; 36415; 80053; 96375; 99285; 96366; J1953; J7030

== ENCOUNTER 2024-06-06 13:58 | Emergency (ER) | payer BC ==
[2024-06-06] MEDS ORDERED: NA CHLORIDE 0.9% 1,000 ML ONE (14:25)
[2024-06-06] MEDS ORDERED: KETOROLAC 30 MG/ML INJ ONE (14:25)
[2024-06-06] MEDS ORDERED: LORazepam 2 MG/ML VIAL ONE (14:25)
[2024-06-06 14:29] LABS: Absolute Basophils 0.1 K/uL (0-0.5); Absolute Lymphocytes (CBC) 1.4 K/uL (0.7-4.9); Absolute Monocytes 0.6 K/uL (0.1-1.3); Basophils % 0.6 % (0-1.3); Eosinophils % 0.1 % (0-4.4); Hematocrit 33.8 % (36.0-45.0); Hemoglobin 11.4 g/dL (12.0-15.0); MCH 30.2 pg (27.0-35.0); MCHC 33.8 g/dL (32.0-36.0); MCV 89.4 fL (80-100); Monocytes % 4.8 % (3.3-12.3); Neutrophils % 82.5 % (41.7-73.7); Nucleated Red Blood Cells % 0.1 % (0-0); Platelets 338 thou/uL (152-406); RBC Red Blood Cell Count 3.79 M/uL (3.86-4.86); Red Cell Distribution Width 13.8 % (12.1-15.2)
[2024-06-06 14:46] LABS: ALT/SGPT 32 U/L (13-56); AST/SGOT 30 U/L (15-37); Albumin 3.5 g/dL (3.4-5.0); Albumin/Globulin Ratio 0.9 (1.1-1.8); Alkaline Phosphatase 81 U/L (45-117); Anion Gap 12.1 mEq/L (5.0-15.0); BUN Blood Urea Nitrogen 7 mg/dL (7-18); Bicarbonate 25 mEq/L (21-32); Bilirubin Total 0.3 mg/dL (0.2-1.0); Globulin 3.8 g/dL (2.3-3.5); Glomerular Filtration Rate 102 ml/min (=/>90); Glucose Level 93 mg/dL (74-106); Magnesium 2.3 mg/dL (1.6-2.4); Potassium 4.1 mEq/L (3.5-5.1); Protein, Total 7.3 g/dL (6.4-8.2); Sodium Level 137 mEq/L (136-145)
--- NOTE | 2024-06-06 14:47 | RAD REPORT ---
Procedure: Chest Single View HISTORY: Cough COMPARISON: 2018 FINDINGS: The lungs appear clear of acute infiltrate. No significant pleural effusion noted. The heart is normal size. IMPRESSION: No acute abnormality is displayed.
[2024-06-06 14:50] LABS: Bilirubin Direct < 0.2 mg/dL (0-0.2); Bilirubin Indirect, Calculated 0.1 mg/dL (0.2-0.8); Troponin High Sensitivity < 3.0 pg/mL (<58.9)
--- NOTE | 2024-06-06 15:39 | ER ---
Nurse's Notes [facility] Name: Tonia Baker Age: 38 yrs Sex: Female : 1985 Arrival Date: 06/06/2024 Time: 13:58 Bed 6 Private MD: Diagnosis: Other seizures;Acute upper respiratory infection, unspecified Presentation: 06/06 14:06 Chief complaint: EMS states: pt was at urgent care for cough and body aches and was aa5 reported pt had 3 seizures at urgent care. 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 14:06 Coronavirus screen: cough unrelated to allergies, muscle pain. Ebola Screen: Patient aa5 denies travel to an Ebola-affected area in the 21 days before illness onset. Initial Sepsis Screen: Does the patient meet any 2 criteria? HR > 90 bpm. Does the patient have a suspected source of infection? No. Patient's initial sepsis screen is negative. Risk Assessment: Do you want to hurt yourself or someone else? Patient reports no desire to harm self or others. Onset of symptoms was June 06, 2024. 14:06 Method Of Arrival: EMS: [facility] aa5 14:06 Acuity: RANDAL 3 aa5 14:06 Care prior to arrival: IV initiated. 20 GA, in the left antecubital area, Glucose aa5 check: 94. Historical: - Allergies: 14:07 No Known Allergies; aa5 - Home Meds: 14:07 Xanax Oral [Active]; Zoloft Oral [Active]; gabapentin oral [Active]; aa5 - PMHx: 14:07 Anxiety; Chronic fatigue syndrome; Fibromyalgia; Depressive disorder; aa5 - Immunization history:: Adult Immunizations unknown. - Infectious Disease History:: Denies. - Social history:: Smoking status: Patient denies any tobacco usage or history of. - Family history:: not pertinent. Screenin:[address] [facility] ED Fall Risk Assessment (Adult) History of falling in the last 3 months, jb4 including since admission No falls in past 3 months (0 pts) Confusion or Disorientation No (0 pts) Intoxicated or Sedated No (0 pts) Impaired Gait No (0 pts) Mobility Assist Device Used No (0 pt) Altered Elimination No (0 pt) Score/Fall Risk Level 0 - 2 = Low Risk Oriented to surroundings, Maintained a safe environment, Educated pt \T\ family on fall prevention, incl call for assistance when getting out of bed, Assessed \T\ reinforced patient's understanding of fall precautions, Hourly rounding (assess needs \T\ fall precautionary measures) done. Abuse screen: Denies threats or abuse. Denies injuries from another. Nutritional screening: No deficits noted. Tuberculosis screening: No symptoms or risk factors identified. Assessment: 14:06 General: Appears uncomfortable, Behavior is calm, cooperative. Pain: Complains of pain aa5 in back Quality of pain is described as aching, Aggravated by cough. Neuro: Level of Consciousness is awake, alert, obeys commands, Oriented to person, place, time, situation. Cardiovascular: Heart tones S1 S2 present Rhythm is sinus tachycardia. Respiratory: Reports cough that is productive, persistent Airway is patent Respiratory effort is even, unlabored, Respiratory pattern is regular, symmetrical. GI: No signs and/or symptoms were reported involving the gastrointestinal system. Patient currently denies diarrhea, intolerance of fluids, intolerance of food, nausea, vomiting. : No signs and/or symptoms were reported regarding the genitourinary system. EENT: No signs and/or symptoms were reported regarding the EENT system. Derm: Skin is pink, warm \T\ dry. Musculoskeletal: Range of motion: intact in all extremities. Vital Signs: 14:06 BP 129 / 87; Pulse 132; Resp 19 S; Temp 99.2(O); Pulse Ox 100% on R/A; aa5 14:06 Weight 52.62 kg (R); Height 5 ft. 4 in. (R); aa5 14:28 Pulse 117; Resp 16 S; Pulse Ox 97% on R/A; aa5 15:48 BP 108 / 73; Pulse 112; Resp 19; Pulse Ox 99% on R/A; ko1 14:06 Body Mass Index 19.91 (52.62 kg, 162.56 cm) aa5 [place] Coma Score: 14:07 Eye Response: spontaneous(4). Motor Response: obeys commands(6). Verbal Response: aa5 oriented(5). Total: 15. ED Course: 14:06 Patient arrived in ED. jb4 14:06 Arm band placed on Patient placed in an exam room, on a stretcher. aa5 14:07 Dereje Sinclair MD is Attending Physician. rt 14:07 Becca Chowdary, RN is Primary Nurse. aa5 14:12 Triage completed. aa5 14:17 Initial lab(s) drawn, by me, sent to lab. aa5 14:23 Patient has correct armband on for positive identification. Placed in gown. Bed in low jb4 position. Call light in reach. Side rails up X2. Seizure precautions initiated. Provided Education on: labs, meds. Client placed on continuous cardiac and pulse oximetry monitoring. NIBP monitoring applied. case monitor on. Door closed. Noise minimized. Lights dimmed. Warm blanket given. Pillow given. 14:23 Basic Metabolic Panel Sent. jb4 14:23 Influenza Screen (a \T\ B) Sent. jb4 14:23 Test, Serum Sent. jb4 14:23 CBC with Diff Sent. jb4 14:23 LFT's Sent. jb4 14:23 Magnesium Sent. jb4 14:23 Troponin HS Sent. jb4 14:23 EKG done, by ED staff, reviewed by Dereje Sinclair MD. jb4 14:28 XRAY Chest (1 view) In Process Unspecified. EDMS 15:48 No provider procedures requiring assistance completed. IV discontinued, intact, ko1 bleeding controlled, No redness/swelling at site. Pressure dressing applied. Administered Medications: 14:28 Drug: Ativan IVP 1 mg IVP once Route: IVP; Site: left antecubital; jb4 14:43 Follow up: Response: No adverse reaction ko1 14:28 Drug: Ketorolac IVP 15 mg IVP once Route: IVP; Site: left antecubital; jb4 14:43 Follow up: Response: No adverse reaction ko1 14:28 Drug: NS 0.9% IV 1000 ml IV at 1000 ml once; to be given as a bolus over 60 minutes jb4 Route: IV; Rate: 1000 ml; Site: left antecubital; 15:48 Follow up: Response: No adverse reaction; IV Status: Completed infusion; IV Intake: ko1 1000ml Medication: 14:29 VIS not applicable for this client. aa5 Intake: 15:48 IV: 1000ml; Total: 1000ml. ko1 Outcome: 15:38 Discharge ordered by . rt 15:56 Discharged to home ambulatory, with family, ko1 15:56 Condition: stable 15:56 Discharge instructions given to patient, family, Instructed on discharge instructions, follow up and referral plans. Demonstrated understanding of instructions, follow-up care, 15:57 Patient left the ED. ko1 Signatures: Dispatcher [employer] EDBecca Mueller, RN RN aa5 Parminder Franco RN RN jb4 Nella Mayen RN RN ko1 Dereje Sinclair MD MD rt
--- NOTE | 2024-06-06 15:39 | EDPHYS ---
Physician Documentation [facility] Name: Tonia Baker Age: 38 yrs Sex: Female : 1985 Arrival Date: 06/06/2024 Time: 13:58 Bed 6 Private MD: ED Physician Dereje Sicnlair HPI: 06/06 16:24 This 38 yrs old Female presents to ER via EMS with complaints of Seizure. rt 16:24 Patient with history of epileptic seizures presents to the ED with reported seizure rt while at an urgent care. Patient was at this urgent care for cough, congestion, upper respiratory symptoms. Denies other acute complaints at this time, symptoms are moderate in severity, no other aggravating or alleviating factors. Patient returned to baseline mental status.. Historical: - Allergies: 14:07 No Known Allergies; aa5 - Home Meds: 14:07 Xanax Oral [Active]; Zoloft Oral [Active]; gabapentin oral [Active]; aa5 - PMHx: 14:07 Anxiety; Chronic fatigue syndrome; Fibromyalgia; Depressive disorder; aa5 - Immunization history:: Adult Immunizations unknown. - Infectious Disease History:: Denies. - Social history:: Smoking status: Patient denies any tobacco usage or history of. - Family history:: not pertinent. ROS: 16:24 Constitutional: Negative for fever, chills, and weight loss, Cardiovascular: Negative rt for chest pain, palpitations, and edema, Abdomen/GI: Negative for abdominal pain, nausea, vomiting, diarrhea, and constipation, MS/Extremity: Negative for injury and deformity, Skin: Negative for injury, rash, and discoloration, 16:24 Respiratory: Positive for cough, Negative for shortness of breath, 16:24 Neuro: Positive for seizure activity, Negative for altered mental status, Exam: 16:24 Constitutional: This is a well developed, well nourished patient who is awake, alert, rt and in no acute distress. Head/Face: Normocephalic, atraumatic. Chest/axilla: Normal chest wall appearance and motion. Nontender with no deformity. No lesions are appreciated. Cardiovascular: Regular rate and rhythm with a normal S1 and S2. No gallops, murmurs, or rubs. Normal PMI, no JVD. No pulse deficits. Respiratory: Lungs have equal breath sounds bilaterally, clear to auscultation and percussion. No rales, rhonchi or wheezes noted. No increased work of breathing, no retractions or nasal flaring. Abdomen/GI: Soft, non-tender, with normal bowel sounds. No distension or tympany. No guarding or rebound. No evidence of tenderness throughout. Skin: Warm, dry with normal turgor. Normal color with no rashes, no lesions, and no evidence of cellulitis. MS/ Extremity: Pulses equal, no cyanosis. Neurovascular intact. Full, normal range of motion. 16:24 ECG was reviewed by the Attending Physician. Vital Signs: 14:06 BP 129 / 87; Pulse 132; Resp 19 S; Temp 99.2(O); Pulse Ox 100% on R/A; aa5 14:06 Weight 52.62 kg (R); Height 5 ft. 4 in. (R); aa5 14:28 Pulse 117; Resp 16 S; Pulse Ox 97% on R/A; aa5 15:48 BP 108 / 73; Pulse 112; Resp 19; Pulse Ox 99% on R/A; ko1 14:06 Body Mass Index 19.91 (52.62 kg, 162.56 cm) aa5 [place] Coma Score: 14:07 Eye Response: spontaneous(4). Motor Response: obeys commands(6). Verbal Response: aa5 oriented(5). Total: 15. MDM: 14:07 Medical Screening Exam initiated rt 16:24 Differential diagnosis: Nonepileptic seizure, electrolyte disturbance, dysrhythmia, rt flu, pneumonia, viral syndrome. Data reviewed: vital signs, nurses notes, lab test result(s), EKG, radiologic studies. I considered the following discharge prescriptions or medication management in the emergency department Medications were administered in the Emergency Department. See MAR. Test considered but Not performed: CT: Tachycardia improved with IV fluids, Ativan, low suspicion for pulmonary embolus, suspect viral etiology, CT angiogram is not indicated.. Care significantly affected by the following chronic conditions: Nonepileptic seizure. Counseling: I had a detailed discussion with the patient and/or guardian regarding the historical points, exam findings, and any diagnostic results supporting the discharge/admit diagnosis, lab results, radiology results, the need for outpatient follow up, to return to the emergency department if symptoms worsen or persist or if there are any questions or concerns that arise at home. Response to treatment: the patient's symptoms have markedly improved after treatment. 06/06 14:08 Order name: Basic Metabolic Panel; Complete Time: 15:05 rt 06/06 14:08 Order name: CBC with Diff; Complete Time: 15: rt 06/06 14:08 Order name: LFT's; Complete Time: 15: rt 06/06 14:08 Order name: Magnesium; Complete Time: 15: rt 06/06 14:08 Order name: Troponin HS; Complete Time: 15: rt 06/06 14:08 Order name: Test, Serum; Complete Time: 15: rt 06/06 14:08 Order name: Influenza Screen (a \T\ B); Complete Time: 15: rt 06/06 14:08 Order name: XRAY Chest (1 view); Complete Time: 15:05 rt 06/06 14:08 Order name: EKG; Complete Time: 14:08 rt 06/06 14:08 Order name: Cardiac monitoring; Complete Time: 14:12 rt 06/06 14:08 Order name: EKG - Nurse/Tech; Complete Time: 14:22 rt 06/06 14:08 Order name: IV Saline Lock; Complete Time: 14:12 rt 06/06 14:08 Order name: Labs collected and sent; Complete Time: 14:22 rt 06/06 14:08 Order name: O2 Per Protocol; Complete Time: 14:12 rt 06/06 14:08 Order name: O2 Sat Monitoring; Complete Time: 14:12 rt EC:24 Rate is 113 beats/min. Rhythm is regular, Sinus tachycardia with No ectopy. QRS [place] is rt Normal. CO interval is normal. QRS interval is normal. QT interval is normal. No Q waves. No ST changes noted. Interpreted by me. Administered Medications: 14:28 Drug: Ativan IVP 1 mg IVP once Route: IVP; Site: left antecubital; jb4 14:43 Follow up: Response: No adverse reaction ko1 14:28 Drug: Ketorolac IVP 15 mg IVP once Route: IVP; Site: left antecubital; jb4 14:43 Follow up: Response: No adverse reaction ko1 14:28 Drug: NS 0.9% IV 1000 ml IV at 1000 ml once; to be given as a bolus over 60 minutes jb4 Route: IV; Rate: 1000 ml; Site: left antecubital; 15:48 Follow up: Response: No adverse reaction; IV Status: Completed infusion; IV Intake: ko1 1000ml Disposition Summary: 06/06/24 15:38 Discharge Ordered Notes: Location: Home rt Problem: new rt Symptoms: have improved rt Condition: Stable rt Diagnosis - Other seizures rt - Acute upper respiratory infection, unspecified rt Followup: rt - With: Private Physician - When: 2 - 3 days - Reason: Discharge Instructions: - Discharge Summary Sheet rt - Seizure, Adult rt - Viral Respiratory Infection rt - Preventing Antibiotic Resistance rt Forms: - Medication Reconciliation Form rt - Antibiotic Education rt - Prescription Opioid Use rt - Patient Portal Instructions rt - Leadership Thank You Letter rt Signatures: Dispatcher [employer] Becca Otto, RN RN aa5 Parminder Franco RN RN jb4 Dereje Sinclair MD MD rt Nella Mayen RN ko1
[2024-06-06 23:15] VITALS: TEMP 99.2
[2024-06-06 23:17] VITALS: BP 108/73; O2SAT 99
== END 2024-06-06 15:57 | disposition home or self-care (01) ==
LOC: ER 13:58
DX: G40.89 Other seizures (principal); J06.9 Acute upper respiratory infection, unspecified
CPT/HCPCS: 96361; 85025; 80048; 36415; 83735; 84703; 80076; 84484; 87804 ×2; 71045; 96375; 96374; 99285; J7030; 93005

== ENCOUNTER 2024-08-05 15:52 | Emergency (ER) | payer BC ==
[2024-08-05 16:30] LABS: ALT/SGPT 25 U/L (13-56); AST/SGOT 22 U/L (15-37); Albumin 3.7 g/dL (3.4-5.0); Albumin/Globulin Ratio 1.1 (1.1-1.8); Alkaline Phosphatase 64 U/L (45-117); Anion Gap 9.9 mEq/L (5.0-15.0); BUN Blood Urea Nitrogen 6 mg/dL (7-18); Bicarbonate 25 mEq/L (21-32); Bilirubin Total 0.3 mg/dL (0.2-1.0); Globulin 3.5 g/dL (2.3-3.5); Glomerular Filtration Rate 90 ml/min (=/>90); Glucose Level 98 mg/dL (74-106); Potassium 3.9 mEq/L (3.5-5.1); Protein, Total 7.2 g/dL (6.4-8.2); Sodium Level 137 mEq/L (136-145)
[2024-08-05 16:31] LABS: Bilirubin Direct < 0.2 mg/dL (0-0.2); Bilirubin Indirect, Calculated 0.1 mg/dL (0.2-0.8)
[2024-08-05 16:37] LABS: PT Prothrombin Time 11.4 SECONDS (10-13.0)
[2024-08-05 16:38] LABS: Absolute Lymphocytes (CBC) 1.4 K/uL (0.7-4.9); Absolute Monocytes 0.3 K/uL (0.1-1.3); Absolute Neutrophil 2.1 K/uL (1.8-8.0); Basophils % 0.6 % (0-1.3); Eosinophils % 0.8 % (0-4.4); Hematocrit 32.3 % (36.0-45.0); Hemoglobin 10.8 g/dL (12.0-15.0); Lymphocytes % 35.9 % (15.3-44.8); MCH 30.4 pg (27.0-35.0); MCHC 33.5 g/dL (32.0-36.0); MCV 90.7 fL (80-100); Monocytes % 7.3 % (3.3-12.3); Neutrophils % 55.4 % (41.7-73.7); Nucleated Red Blood Cells % 0.1 % (0-0); Platelets 199 thou/uL (152-406); RBC Red Blood Cell Count 3.56 M/uL (3.86-4.86); Red Cell Distribution Width 16.7 % (12.1-15.2)
--- NOTE | 2024-08-05 17:31 | ER ---
Nurse's Notes [facility] Name: Tonia Baker Age: 38 yrs Sex: Female : 1985 Arrival Date: 08/05/2024 Time: 15:52 Bed 2 Private MD: Diagnosis: Pseudoseizure Presentation: 08/05 16:00 Chief complaint: EMS states: Toned out for seizure, gave 2.5 mg Versed IM and 2.5 mg jl7 Versed IV in route. 16:00 Method Of Arrival: EMS: [facility] jl7 16:00 Coronavirus screen: At this time, the client does not indicate any symptoms associated jl7 with coronavirus-19. Ebola Screen: No symptoms or risks identified at this time. Initial Sepsis Screen: Does the patient meet any 2 criteria? No. Patient's initial sepsis screen is negative. Does the patient have a suspected source of infection? No. Patient's initial sepsis screen is negative. Risk Assessment: Do you want to hurt yourself or someone else? Patient reports no desire to harm self or others. Onset of symptoms is unknown. Care prior to arrival: Medication(s) given: Versed IV initiated. 18 GA, in the left antecubital area. 16:00 Acuity: RANDAL 3 jl7 Triage Assessment: 16:00 General: Appears in no apparent distress. comfortable, Behavior is cooperative, crying. jl7 Pain: Denies pain. Neuro: Level of Consciousness is drowsy. 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 - Infectious Disease History:: Denies. - Social history:: Smoking status: unknown. Screenin:00 [facility] ED Fall Risk Assessment (Adult) History of falling in the last 3 months, jl7 including since admission No falls in past 3 months (0 pts) Confusion or Disorientation No (0 pts) Intoxicated or Sedated Yes (3 pts) Impaired Gait Yes (1 pt) Mobility Assist Device Used No (0 pt) Altered Elimination No (0 pt) Score/Fall Risk Level 3 or more points = High Risk Oriented to surroundings, Maintained a safe environment. Abuse screen: Denies threats or abuse. Denies injuries from another. Nutritional screening: No deficits noted. Tuberculosis screening: No symptoms or risk factors identified. Assessment: 16:20 Reassessment: Spouse at bedside. jl7 17:00 General: Appears in no apparent distress. uncomfortable, Behavior is calm, cooperative, jl7 appropriate for age. Pain: Complains of pain in SANC[place]. Neuro: Level of Consciousness is awake, alert, obeys commands, Oriented to person, place, time, situation. Cardiovascular: Patient's skin is warm and dry. Respiratory: Airway is patent Respiratory effort is even, unlabored, Respiratory pattern is regular, symmetrical. Derm: Skin is pink, warm \T\ dry. Vital Signs: 16:00 BP 109 / 74; Pulse 99; Resp 15; Temp 97.9; Pulse Ox 98% ; Weight 63.5 kg; jl7 17:30 BP 114 / 78; Pulse 85; Resp 15; Pulse Ox 100% ; jl7 ED Course: 15:54 Patient arrived in ED. sp3 15:54 Tano Schwab MD is Attending Physician. sp3 16:00 Arm band placed on right wrist. jl7 16:03 uLanne Robbins RN is Primary Nurse. jl7 16:04 Maintain EMS IV. Good blood return noted. Gauge \T\ site: 18 gauge in L AC. Flushed with ss 10 mL NS. 16:08 Acetaminophen Sent. ss 16:08 Basic Metabolic Panel Sent. ss 16:08 CBC with Diff Sent. ss 16:08 ETOH Level Sent. ss 16:08 Hepatic Function Sent. ss 16:08 PT-INR Sent. ss 16:08 Test, Urine Sent. ss 16:08 Ptt, Activated Sent. ss 16:08 Salicylate Sent. ss 16:08 Urinalysis w/ reflexes Sent. ss 16:23 Triage completed. jl7 17:00 No provider procedures requiring assistance completed. jl7 17:00 Patient has correct armband on for positive identification. Provided Education on: use jl7 of call mack. 17:47 IV discontinued, intact, bleeding controlled, No redness/swelling at site. Pressure jl7 dressing applied. Administered Medications: No medications were administered Medication: 17:30 VIS not applicable for this client. jl7 Outcome: 17:30 Discharge ordered by . sp3 17:46 Discharged to home ambulatory, jl7 17:46 Condition: stable 17:46 Discharge instructions given to patient, Instructed on discharge instructions, follow up and referral plans. Demonstrated understanding of instructions, follow-up care, 17:47 Patient left the ED. jl7 Signatures: Temi Mckinnon, RN RN ss Luanne Robbins RN RN jl7 Tano Schwab MD MD sp3
--- NOTE | 2024-08-05 17:31 | EDPHYS ---
Physician Documentation [facility] Name: Tonia Baker Age: 38 yrs Sex: Female : 1985 Arrival Date: 08/05/2024 Time: 15:52 Bed 2 Private MD: ED Physician Tano Schwab HPI: 08/05 16:27 This 38 yrs old Female presents to ER via EMS with complaints of shaking. sp3 16:27 38-year-old female with history of anxiety, pseudoseizures, fibromyalgia, chronic sp3 fatigue syndrome, depression presents to the ED via EMS for "shaking episodes" at work at the [place] [employer]. No convulsions reported by EMS. They gave midazolam IV prophylactically. Patient has no documented history of seizures. Patient uncooperative with questioning. ROS, history and physical limited secondary to these findings.. 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 - Infectious Disease History:: Denies. - Social history:: Smoking status: unknown. ROS: 16:28 Unable to obtain ROS due to patient being uncooperative, sp3 Exam: 16:28 Constitutional: This is a well developed, well nourished patient who is awake, alert, sp3 and in no acute distress. Head/Face: Normocephalic, atraumatic. ENT: Nares patent. No nasal discharge, no septal abnormalities noted. External auditory canals are clear. Oropharynx with no redness, swelling, or masses, exudates, or evidence of obstruction, uvula midline. Mucous membranes moist. Neck: Trachea midline, no thyromegaly or masses palpated, and no cervical lymphadenopathy. Supple, full range of motion without nuchal rigidity, or vertebral point tenderness. No Meningismus. Chest/axilla: Normal chest wall appearance and motion. Nontender with no deformity. No lesions are appreciated. Cardiovascular: Regular rate and rhythm with a normal S1 and S2. No gallops, murmurs, or rubs. Normal PMI, no JVD. No pulse deficits. Respiratory: Lungs have equal breath sounds bilaterally, clear to auscultation and percussion. No rales, rhonchi or wheezes noted. No increased work of breathing, no retractions or nasal flaring. Abdomen/GI: Soft, non-tender, with normal bowel sounds. No distension or tympany. No guarding or rebound. No evidence of tenderness throughout. Back: No spinal tenderness. No costovertebral tenderness. Full range of motion. 16:28 Neuro: Patient with normal vital signs. Patient flickering eyes consistent with pseudoseizure. Mild sternal rub awakens patient where she responds. No active seizure activity in the ED., Vital Signs: 16:00 BP 109 / 74; Pulse 99; Resp 15; Temp 97.9; Pulse Ox 98% ; Weight 63.5 kg; jl7 17:30 BP 114 / 78; Pulse 85; Resp 15; Pulse Ox 100% ; jl7 MDM: 15:55 Medical Screening Exam initiated sp3 16:29 Data reviewed: vital signs, nurses notes, lab test result(s). ED course: 38-year-old sp3 female with shaking episode. Differential diagnosis includes pseudoseizure, electrolyte abnormality, anxiety, psychiatric pathology. 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 Will obtain routine labs and observe patient and safely discharge her once a ride arrives.. 17:29 ED course: Labs within normal limits. Urine pending. We will discharge patient as she sp3 is stable with normal vital signs. Urine test can be canceled.. 08/05 15:55 Order name: Acetaminophen; Complete Time: 17: 3 08/05 15:55 Order name: Basic Metabolic Panel; Complete Time: 17: 3 08/05 15:55 Order name: CBC with Diff; Complete Time: 17: [facility] 08/05 15:55 Order name: ETOH Level; Complete Time: 17: 3 08/05 15:55 Order name: Hepatic Function; Complete Time: 17: [facility] 08/05 15:55 Order name: PT-INR; Complete Time: 17: 3 08/05 15:55 Order name: Test, Urine 3 08/05 15:55 Order name: Ptt, Activated; Complete Time: 17: [facility] 08/05 15:55 Order name: Salicylate; Complete Time: 17:29 sp3 08/05 15:55 Order name: Urinalysis w/ reflexes sp3 08/05 15:55 Order name: Urine Drug Screen sp3 08/05 15:55 Order name: IV Saline Lock; Complete Time: 16:04 sp3 08/05 15:55 Order name: Labs collected and sent; Complete Time: 16:04 sp3 Administered Medications: No medications were administered Disposition Summary: 08/05/24 17:30 Discharge Ordered Notes: Location: Home sp3 Condition: Stable sp3 Diagnosis - Pseudoseizure sp3 Followup: sp3 - With: Private Physician - When: Upon discharge from the Emergency Department - Reason: Continuance of care Discharge Instructions: - Discharge Summary Sheet sp3 - Caring for Your Mental Health sp3 Forms: - Medication Reconciliation Form sp3 - Antibiotic Education sp3 - Prescription Opioid Use sp3 - Patient Portal Instructions sp3 - Leadership Thank You Letter sp3 Signatures: Dispatcher [employer] EDTemi Galvin RN RN ss Luanne Robbins RN RN jl7 Tano Schwab MD MD sp3 Corrections: (The following items were deleted from the chart) 15:56 15:56 ACETAMINOPHEN+C.LAB.BRZ ordered. EDMS EDMS 15:56 15:56 BASIC METABOLIC PANEL+C.LAB.BRZ ordered. EDMS EDMS 15:56 15:56 CBC+H.LAB.BRZ ordered. EDMS EDMS 15:56 15:56 ETHANOL+C.LAB.BRZ ordered. EDMS EDMS 15:56 15:56 HEPATIC FUNCTION+C.LAB.BRZ ordered. EDMS EDMS 15:56 15:56 PROTIME (+INR)+COAG.LAB.BRZ ordered. EDMS EDMS 15:56 15:56 Test, Urine+UC.LAB.BRZ ordered. EDMS EDMS 15:56 15:56 PTT, ACTIVATED+COAG.LAB.BRZ ordered. EDMS EDMS 15:56 15:56 SALICYLATE+C.LAB.BRZ ordered. EDMS EDMS 15:56 15:56 Urinalysis+U.LAB.BRZ ordered. EDMS EDMS 15:56 15:56 URINE DRUG SCREEN+UC.LAB.BRZ ordered. EDMS EDMS
[2024-08-05 17:40] LABS: Specific Gravity 1.011 (1.005-1.030); Sqamous Epithelial <5 /HPF (None Seen); Urine Bacteria None Seen /HPF (<20); Urine Bilirubin NEGATIVE (Negative); Urine Blood Negative (Negative); Urine Clarity Clear (Clear); Urine Color Light-Yellow (Yellow); Urine Culture Reflex Order NOT NEEDED; Urine Glucose NEGATIVE (Negative); Urine Ketones NEGATIVE (Negative); Urine Microscopic Reflex YN ORDER UMIC; Urine Mucus 1+ /HPF (None Seen); Urine Nitrite NEGATIVE (Negative); Urine Protein NEGATIVE (Negative); Urine RBC <5 /HPF (None Seen); Urine Urobilinogen Normal (Normal); Urine WBC <5 /HPF (<5); Urine Yeast (Budding) Trace /HPF (None Seen)
[2024-08-05 17:41] LABS: Specific Gravity 1.011 (1.005-1.030)
[2024-08-05 17:47] LABS: Barbiturates NEGATIVE (NEGATIVE); Benzodiazepines POSITIVE (NEGATIVE); Cocaine NEGATIVE (NEGATIVE); METHAMPHETAM NEGATIVE (NEGATIVE); Methadone NEGATIVE (NEGATIVE); Opiates NEGATIVE (NEGATIVE); Phencyclidine NEGATIVE (NEGATIVE); THC Cannibis NEGATIVE (NEGATIVE)
[2024-08-05 18:19] VITALS: TEMP 97.9
[2024-08-05 18:21] VITALS: BP 114/78; O2SAT 100
== END 2024-08-05 17:47 | disposition home or self-care (01) ==
LOC: ER 15:52
DX: R56.9 Unspecified convulsions (principal); G93.32 Myalgic encephalomyelitis/chronic fatigue syndrome
CPT/HCPCS: 36415; 80048; 80076; 80143; 80179; 80307; 81001; 81025; 82077; 85025; 85610; 85730; 99283

== ENCOUNTER 2024-09-02 22:06 | Emergency (ER) | payer BC ==
[2024-09-02] MEDS ORDERED: NA CHLORIDE 0.9% 100 ML ONE (22:26)
[2024-09-02] MEDS ORDERED: LORazepam 2 MG/ML VIAL ONE (22:26)
[2024-09-02] MEDS ORDERED: ONDANSETRON 4 MG/2 ML VIAL ONE (22:26)
[2024-09-02] MEDS ORDERED: LEVETIRACETAM 500 MG/5 ML VIAL IV ONE (22:26)
[2024-09-02] MEDS ORDERED: NA CHLORIDE 0.9% 1,000 ML ONE (22:27)
[2024-09-02 22:48] LABS: Absolute Lymphocytes (CBC) 2.7 K/uL (0.7-4.9); Absolute Monocytes 0.4 K/uL (0.1-1.3); Absolute Neutrophil 2.6 K/uL (1.8-8.0); Basophils % 0.7 % (0-1.3); Eosinophils % 0.7 % (0-4.4); Hemoglobin 11.3 g/dL (12.0-15.0); Lymphocytes % 46.3 % (15.3-44.8); MCH 30.8 pg (27.0-35.0); MCHC 34.1 g/dL (32.0-36.0); MCV 90.3 fL (80-100); MPV 7.8 fL (7.6-11.3); Monocytes % 6.7 % (3.3-12.3); Neutrophils % 45.6 % (41.7-73.7); Nucleated Red Blood Cells % 0.1 % (0-0); Platelets 213 thou/uL (152-406); RBC Red Blood Cell Count 3.66 M/uL (3.86-4.86); Red Cell Distribution Width 14.2 % (12.1-15.2)
[2024-09-02 23:05] LABS: ALT/SGPT 21 U/L (13-56); AST/SGOT 16 U/L (15-37); Albumin 3.9 g/dL (3.4-5.0); Albumin/Globulin Ratio 1.2 (1.1-1.8); Alkaline Phosphatase 59 U/L (45-117); Anion Gap 9.4 mEq/L (5.0-15.0); BUN Blood Urea Nitrogen 8 mg/dL (7-18); Bicarbonate 25 mEq/L (21-32); Bilirubin Total 0.3 mg/dL (0.2-1.0); Creatine Phosphokinase 76 U/L (26-192); Globulin 3.3 g/dL (2.3-3.5); Glomerular Filtration Rate 90 ml/min (=/>90); Glucose Level 108 mg/dL (74-106); Lipase 42 U/L (13-75); Potassium 3.4 mEq/L (3.5-5.1); Protein, Total 7.2 g/dL (6.4-8.2); Sodium Level 138 mEq/L (136-145)
[2024-09-02 23:21] LABS: C-Reactive Protein < 2.90 mg/L (<3.00)
--- NOTE | 2024-09-03 00:17 | EDPHYS ---
Physician Documentation [facility] Name: Tonia Baker Age: 38 yrs Sex: Female : 1985 Arrival Date: 09/02/2024 Time: 22:06 Bed 3 Private MD: ED Physician Juan Estes HPI: 09/02 22:19 This 38 yrs old Female presents to ER via EMS with complaints of Probable sp4 Seizure. 09/03 01:29 38-year-old female presents with complaint of convulsions. Patient arrives with EMS. sp4 Patient has history of nonepileptic seizures. Patient has history of prior workup at [facility] where the EEG and also MRI, patient's states that patient was diagnosed with nonepileptic seizures. At home patient takes gabapentin, atomoxetine. On arrival patient is not able to provide any history. She has episodic convulsive twitches. . 01:34 Patient's states convulsive episodes started at 8 PM.. 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 - Infectious Disease History:: Denies. - Social history:: Smoking status: Patient denies any tobacco usage or history of. - Family history:: not pertinent. ROS: 09/03 01:29 Constitutional: Negative for fever, chills, and weight loss, positive for convulsive sp4 episodes starting at 8 PM All other systems are negative, Exam: :34 Constitutional: This is a well developed, well nourished patient who having periodic sp4 convulsions. Patient not able to cooperate for physical exam. Head/Face: Normocephalic, atraumatic. Eyes: Pupils equal round and reactive to light, Lids and lashes normal. Conjunctiva and sclera are not injected. ENT: Nares patent. No nasal discharge, no septal abnormalities noted. Tympanic membranes are normal and external auditory canals are clear. Oropharynx with no redness, swelling, or masses, exudates, or evidence of obstruction, uvula midline. Mucous membranes moist. Neck: Trachea midline, no thyromegaly or masses palpated, and no cervical lymphadenopathy. Supple, full range of motion without nuchal rigidity, or vertebral point tenderness. Chest/axilla: Normal chest wall appearance and motion. Nontender with no deformity. No lesions are appreciated. Cardiovascular: Regular rate and rhythm with a normal S1 and S2. No gallops, murmurs, or rubs. Normal PMI, no JVD. No pulse deficits. Respiratory: Lungs have equal breath sounds bilaterally, clear to auscultation and percussion. No rales, rhonchi or wheezes noted. No increased work of breathing, no retractions or nasal flaring. Abdomen/GI: Soft, with normal bowel sounds. No distension or tympany. No guarding or rebound. No evidence of tenderness throughout. Back: No spinal tenderness. No costovertebral tenderness. Skin: Warm, dry with normal turgor. Normal color with no rashes, no lesions, and no evidence of cellulitis. MS/ Extremity: Pulses equal, no cyanosis. Neurovascular intact. Full, normal range of motion. Neuro: Exam is limited by convulsive episodes. Grossly patient is moving all extremities, no sign of lateralizing deficit Psych: Exam is limited secondary to convulsive episodes 01:37 ECG was reviewed by the Attending Physician. EKG at 2211 normal sinus rhythm at rate sp4 100 normal EKG. Vital Signs: 09/02 22:13 BP 127 / 83; Pulse 99; Resp 18; Temp 98.4; Pulse Ox 100% ; Weight 58.97 kg; Pain 0/10; bm8 22:15 BP 124 / 72; Pulse 97; Resp 16; Pulse Ox 100% on R/A; al5 22:30 BP 119 / 77; Pulse 91; Resp 19; Pulse Ox 100% ; al5 22:30 BP 114 / 72; Pulse 93; Resp 17; Pulse Ox 100% ; al5 23:00 BP 114 / 75; Pulse 93; Resp 16; Pulse Ox 100% ; al5 23:32 BP 102 / 66; Pulse 86; Resp 19; Temp 98.4; Pulse Ox 100% ; Pain 0/10; bm8 09/03 00:00 BP 107 / 75; Pulse 84; Resp 15; Pulse Ox 97% ; al5 00:48 BP 112 / 71; Pulse 88; Resp 17; Temp 98.4; Pulse Ox 99% ; Pain 0/10; bm8 09/02 22:13 Pain Scale: Adult bm8 23:32 Pain Scale: Adult bm8 00:48 Pain Scale: Adult bm8 [place] Coma Score: 09/02 22:15 Eye Response: to pain(2). Motor Response: localizes pain(5). Verbal Response: none(1). bm8 Total: 8. 23:32 Eye Response: to voice(3). Motor Response: localizes pain(5). Verbal Response: bm8 inappropriate words(3). Total: 11. 09/03 00:48 Eye Response: spontaneous(4). Motor Response: obeys commands(6). Verbal Response: bm8 oriented(5). Total: 15. 01:34 Eye Response: to pain(2). Motor Response: localizes pain(5). Verbal Response: sp4 incomprehensible(2). Total: 9. MDM: 09/02 22:53 Medical Screening Exam initiated 09/03 01:34 Differential diagnosis: cerebral vascular accident, drug overdose, cardiac arrhythmia, sp4 seizure, TIA. Data reviewed: vital signs, nurses notes, EMS record, old medical records, lab test result(s), EKG. Consideration of Admission/Observation Escalation of care including admission/observation considered. 09/02 22:22 Order name: CBC with Diff; Complete Time: 00:09 [facility] 09/02 22:22 Order name: CMP; Complete Time: 00:09 [facility] 09/02 22:22 Order name: Lipase; Complete Time: 00:09 [facility] 09/02 22:22 Order name: Lactate w/ 2H reflex if indic.; Complete Time: 00:10 [facility] 09/02 22:22 Order name: CRP; Complete Time: 00:10 [facility] 09/02 22:23 Order name: CK; Complete Time: 00:10 [facility] 09/03 00:10 Order name: Test, Serum; Complete Time: 01:29 [facility] 09/02 22:22 Order name: IV Saline Lock; Complete Time: 22:38 [facility] 09/02 22:22 Order name: Labs collected and sent; Complete Time: 22:38 [facility] EC/28 22:11 Rate is 100 beats/min. Rhythm is regular, Normal Sinus Rhythm. QRS [place] is Normal. DC sp4 interval is normal. QRS interval is normal. QT interval is normal. No Q waves. T waves are Normal. No ST changes noted. Clinical impression: Normal ECG and No evidence of ischemia. Interpreted by me. Reviewed by me. Administered Medications: 22:38 Drug: Ativan IVP 2 mg IVP once Route: IVP; Site: left antecubital; 8 09/03 00:31 Follow up: Response: No adverse reaction 09/02 22:38 Drug: Ondansetron IVP 4 mg IVP once; over 2 minutes Route: IVP; Site: left antecubital; 8 09/03 00:31 Follow up: Response: No adverse reaction 09/02 22:38 Drug: Keppra IV 1000 mg IV at bolus once Route: IV; Rate: bolus; Site: left antecubital;8 09/03 00:31 Follow up: Response: No adverse reaction; IV Status: Completed infusion; IV Intake: al5 100ml 09/02 22:38 Drug: NS 0.9% IV 1000 ml IV at 1 bolus Per protocol; to be given as a bolus over 60 bm8 minutes Route: IV; Rate: 1 bolus; Site: left antecubital; 09/03 00:31 Follow up: Response: No adverse reaction; IV Status: Completed infusion; IV Intake: al5 1000ml Disposition Summary: 09/03/24 00:16 Discharge Ordered Notes: Location: Home sp4 Problem: new sp4 Symptoms: have improved sp4 Condition: Stable sp4 Diagnosis - Acute convulsive episode, Psychogenic seizures sp4 Followup: sp4 - With: Private Physician - When: 7 - 10 days - Reason: Recheck today's complaints Discharge Instructions: - Discharge Summary Sheet sp4 - Non-Epileptic Seizures, Adult sp4 Forms: - Patient Portal Instructions sp4 Prescriptions: - diazepam 5 mg/spray (0.1 mL) Nasal spray, non-aerosol - spray 0.1 milliliter INTRANASAL route every 4 hours for 2 doses 1 spray in sp4 single nostril, PRN seizures; 2 unit; Refills: 0, Product Selection Permitted Signatures: Dispatcher [facility] Juan Sanchez MD MD sp4 Braeden Armendariz, RN RN bm8 Deidra Zamorano RN al5 Corrections: (The following items were deleted from the chart) 01:37 01:34 Constitutional: This is a well developed, well nourished patient who having sp4 periodic convulsions. Patient not able to cooperate for physical exam. Head/Face: Normocephalic, atraumatic. Eyes: Pupils equal round and reactive to light, Lids and lashes normal. Conjunctiva and sclera are not injected. ENT: Nares patent. No nasal discharge, no septal abnormalities noted. Tympanic membranes are normal and external auditory canals are clear. Oropharynx with no redness, swelling, or masses, exudates, or evidence of obstruction, uvula midline. Mucous membranes moist. Neck: Trachea midline, no thyromegaly or masses palpated, and no cervical lymphadenopathy. Supple, full range of motion without nuchal rigidity, or vertebral point tenderness. Chest/axilla: Normal chest wall appearance and motion. Nontender with no deformity. No lesions are appreciated. Cardiovascular: Regular rate and rhythm with a normal S1 and S2. No gallops, murmurs, or rubs. Normal PMI, no JVD. No pulse deficits. Respiratory: Lungs have equal breath sounds bilaterally, clear to auscultation and percussion. No rales, rhonchi or wheezes noted. No increased work of breathing, no retractions or nasal flaring. Abdomen/GI: Soft, with normal bowel sounds. No distension or tympany. No guarding or rebound. No evidence of tenderness throughout. Back: No spinal tenderness. No costovertebral tenderness. Skin: Warm, dry with normal turgor. Normal color with no rashes, no lesions, and no evidence of cellulitis. MS/ Extremity: Pulses equal, no cyanosis. Neurovascular intact. Full, normal range of motion. Neuro: Awake and alert, GCS 15, oriented to person, place, time, and situation. Cranial nerves II-XII grossly intact. Motor strength 5/5 in all extremities. Sensory grossly intact. Psych: Awake, alert, with orientation to person, place and time. Behavior, mood, and affect are within normal limits sp4 01:37 01:34 GCS: 15, sp4 sp4
--- NOTE | 2024-09-03 00:17 | ER ---
Nurse's Notes [facility] Name: Tonia Baker Age: 38 yrs Sex: Female : 1985 Arrival Date: 09/02/2024 Time: 22:06 Bed 3 Private MD: Diagnosis: Acute convulsive episode, Psychogenic seizures Presentation: 09/02 22:13 Chief complaint: EMS states: Called out for seizure like activity that started at 1999. bm8 describes them more as full body muscle spasms. She has been diagnoised with pseudo seizures. Coronavirus screen: At this time, the client does not indicate any symptoms associated with coronavirus-19. Ebola Screen: Patient negative for fever greater than or equal to 101.5 degrees Fahrenheit, and additional compatible Ebola Virus Disease symptoms Patient denies exposure to infectious person. Patient denies travel to an Ebola-affected area in the 21 days before illness onset. No symptoms or risks identified at this time. Initial Sepsis Screen: Does the patient meet any 2 criteria? No. Patient's initial sepsis screen is negative. Does the patient have a suspected source of infection? No. Patient's initial sepsis screen is negative. Risk Assessment: Do you want to hurt yourself or someone else? Patient reports no desire to harm self or others. Onset of symptoms was September 02, 2024 at 20:00. 22:13 Method Of Arrival: EMS: [facility] 8 22:13 Acuity: RANDAL 2 bm8 22:23 Care prior to arrival: Medication(s) given: Normal saline infusion, 1000 mL, IV bm8 initiated. 20 GA, in the left antecubital area, Glucose check: 118. Triage Assessment: 22:15 General: Appears in no apparent distress. comfortable, slender, well groomed, well bm8 developed, well nourished, Behavior is unresponsive. Pain: Denies pain. EENT: No deficits noted. No signs and/or symptoms were reported regarding the EENT system. Neuro: Level of Consciousness is unresponsive, Pupils are PERRLA, Pupil Size: 4 mm. Cardiovascular: Heart tones S1 S2 present Capillary refill < 3 seconds in bilateral fingers. Respiratory: Airway is patent Respiratory effort is even, unlabored, Respiratory pattern is regular, symmetrical, Breath sounds are clear bilaterally. GI: No signs and/or symptoms were reported involving the gastrointestinal system. : No signs and/or symptoms were reported regarding the genitourinary system. Derm: No signs and/or symptoms reported regarding the dermatologic system. Musculoskeletal: No signs and/or symptoms reported regarding the musculoskeletal system. 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 - Infectious Disease History:: Denies. - Social history:: Smoking status: Patient denies any tobacco usage or history of. - Family history:: not pertinent. Screenin:[facility] ED Fall Risk Assessment (Adult) History of falling in the last 3 months, bm8 including since admission No falls in past 3 months (0 pts) Confusion or Disorientation Yes (5 pts) Intoxicated or Sedated Yes (3 pts) Impaired Gait Yes (1 pt) Mobility Assist Device Used No (0 pt) Altered Elimination No (0 pt) Score/Fall Risk Level 3 or more points = High Risk Oriented to surroundings, Maintained a safe environment, Educated pt \T\ family on fall prevention, incl call for assistance when getting out of bed, Assessed \T\ reinforced patient's understanding of fall precautions, Hourly rounding (assess needs \T\ fall precautionary measures) done, Used ambulatory aids as needed (educated on \T\ assisted with), Used gait belt as appropriate. Abuse screen: Denies threats or abuse. Nutritional screening: No deficits noted. Tuberculosis screening: No symptoms or risk factors identified. Assessment: 23:32 General: Appears in no apparent distress. comfortable, Behavior is cooperative, bm8 appropriate for age, drowsy. Pain: Denies pain. Neuro: Level of Consciousness is alert, obeys commands, Pupils are PERRLA, Pupil Size: 4 mm Seizure activity Patient is post-ictal at this time. Cardiovascular: Heart tones S1 S2 present Capillary refill < 3 seconds in bilateral fingers Patient's skin is warm and dry. Rhythm is sinus rhythm. Respiratory: Airway is patent Respiratory effort is even, unlabored, Respiratory pattern is regular, symmetrical, Breath sounds are clear bilaterally. GI: No signs and/or symptoms were reported involving the gastrointestinal system. : No signs and/or symptoms were reported regarding the genitourinary system. EENT: No signs and/or symptoms were reported regarding the EENT system. Derm: No signs and/or symptoms reported regarding the dermatologic system. Musculoskeletal: No signs and/or symptoms reported regarding the musculoskeletal system. 09/03 00:29 Reassessment: Patient appears in no apparent distress at this time. Reassessment: al5 Patient states feeling better. Patient states symptoms have improved. Neuro: Level of Consciousness is awake, alert, obeys commands, Oriented to person, place, time, situation. 00:48 Reassessment: Patient appears in no apparent distress at this time. Patient and/or bm8 family updated on plan of care and expected duration. Pain level reassessed. Patient is alert, oriented x 3, equal unlabored respirations, skin warm/dry/pink. Patient denies pain at this time. Patient states feeling better. Patient states symptoms have improved. Vital Signs: 09/02 22:13 BP 127 / 83; Pulse 99; Resp 18; Temp 98.4; Pulse Ox 100% ; Weight 58.97 kg; Pain 0/10; bm8 22:15 BP 124 / 72; Pulse 97; Resp 16; Pulse Ox 100% on R/A; al5 22:30 BP 119 / 77; Pulse 91; Resp 19; Pulse Ox 100% ; al5 22:30 BP 114 / 72; Pulse 93; Resp 17; Pulse Ox 100% ; al5 23:00 BP 114 / 75; Pulse 93; Resp 16; Pulse Ox 100% ; al5 23:32 BP 102 / 66; Pulse 86; Resp 19; Temp 98.4; Pulse Ox 100% ; Pain 0/10; bm8 09/03 00:00 BP 107 / 75; Pulse 84; Resp 15; Pulse Ox 97% ; al5 00:48 BP 112 / 71; Pulse 88; Resp 17; Temp 98.4; Pulse Ox 99% ; Pain 0/10; bm8 09/02 22:13 Pain Scale: Adult bm8 23:32 Pain Scale: Adult bm8 00:48 Pain Scale: Adult bm8 [place] Coma Score: 09/02 22:15 Eye Response: to pain(2). Motor Response: localizes pain(5). Verbal Response: none(1). bm8 Total: 8. 23:32 Eye Response: to voice(3). Motor Response: localizes pain(5). Verbal Response: bm8 inappropriate words(3). Total: 11. 09/03 00:48 Eye Response: spontaneous(4). Motor Response: obeys commands(6). Verbal Response: bm8 oriented(5). Total: 15. 01:34 Eye Response: to pain(2). Motor Response: localizes pain(5). Verbal Response: sp4 incomprehensible(2). Total: 9. ED Course: 09/02 22:08 Patient arrived in ED. vc1 22:13 Braeden Armendariz, RN is Primary Nurse. bm8 22:15 Triage completed. bm8 22:15 Arm band placed on right wrist. bm8 22:19 Juan Estes MD is Attending Physician. sp4 23:54 Patient has correct armband on for positive identification. Bed in low position. Call bm8 light in reach. Side rails up X2. Seizure precautions initiated. Client placed on continuous cardiac and pulse oximetry monitoring. NIBP monitoring applied. business information manager on. Pulse ox on. NIBP on. Door closed. Noise minimized. Warm blanket given. Pillow given. Verbal reassurance given. Head of bed lowered. 23:54 No provider procedures requiring assistance completed. Maintain EMS IV. Dressing bm8 intact. Good blood return noted. Site clean \T\ dry. Gauge \T\ site: 20 lac. Flushed with 10 mL NS. 09/03 00:30 Provided Education on: discharge follow up, medications. al5 00:30 IV discontinued, intact, bleeding controlled, No redness/swelling at site. Pressure al5 dressing applied. Administered Medications: 09/02 22:38 Drug: Ativan IVP 2 mg IVP once Route: IVP; Site: left antecubital; 8 09/03 00:31 Follow up: Response: No adverse reaction al5 09/02 22:38 Drug: Ondansetron IVP 4 mg IVP once; over 2 minutes Route: IVP; Site: left antecubital; bm8 09/03 00:31 Follow up: Response: No adverse reaction al5 09/02 22:38 Drug: Keppra IV 1000 mg IV at bolus once Route: IV; Rate: bolus; Site: left antecubital;bm8 09/03 00:31 Follow up: Response: No adverse reaction; IV Status: Completed infusion; IV Intake: al5 100ml 09/02 22:38 Drug: NS 0.9% IV 1000 ml IV at 1 bolus Per protocol; to be given as a bolus over 60 bm8 minutes Route: IV; Rate: 1 bolus; Site: left antecubital; 09/03 00:31 Follow up: Response: No adverse reaction; IV Status: Completed infusion; IV Intake: al5 1000ml Medication: 09/02 23:54 VIS not applicable for this client. bm8 Intake: 09/03 00:31 IV: 1000ml; Total: 1000ml. al5 00:31 IV: 100ml; Total: 1100ml. al5 Outcome: 00:16 Discharge ordered by . sp4 00:30 Discharged to home ambulatory, with significant other, al5 00:30 Condition: good 00:30 Discharge instructions given to patient, significant other, Instructed on discharge instructions, follow up and referral plans. medication usage, Demonstrated understanding of instructions, follow-up care, medications, Prescriptions given X 1, 00:49 Patient left the ED. bm8 Signatures: Maryana David RN RN vc1 Juan Estes MD MD sp4 Braeden Armendariz RN RADHA bm8 Deidra Zamorano RN RN al5 Corrections: (The following items were deleted from the chart) 00:16 00:00 BP 107 / 5; Pulse 84bpm; Resp 15bpm; Pulse Ox 97%; al5 al5
--- NOTE | 2024-09-03 11:45 | EKG ---
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
[2024-09-04 00:14] VITALS: TEMP 98.4
[2024-09-04 00:26] VITALS: BP 112/71; O2SAT 99
== END 2024-09-03 00:49 | disposition home or self-care (01) ==
LOC: ER 22:06
DX: F44.5 Conversion disorder with seizures or convulsions (principal)
CPT/HCPCS: 93005; 85025; 36415; 82550; 84703; 83605; 83690; 80053; 86140; J1953; J2405; J7030